=== PATIENT | female | born 1975 | race Caucasian/White ===

== ENCOUNTER 2016-12-11 21:35 | Observation (INO) | payer OTHER ==
--- NOTE | 2016-12-11 22:01 | ERPHSYRPT ---
- History of Present Illness Time Seen by Provider: 12/11/16 21:50 Historian: patient Exam Limitations: no limitations Physician History: 40 y/o female with history of [place], DM and left AKA comes to the ER with complaints of substernal chest tightness that started this evening. Pt describes it as a pressure sensation, 1/10, constant, with radiation up the esophagus and not relieved by rey seltzer. Pt denies any dizziness, palpitations, shortness of breath, abdominal pain, nausea or vomiting. Pt has been compliant on plavix Timing/Duration: today Activities at Onset: none Quality: pressure Location: substernal Chest Pain Radiation: no radiation Severity of Pain-Max: mild Severity of Pain-Current: mild Modifying Factors: Improves With: nothing Associated Symptoms: denies symptoms Prior Chest Pain/Cardiac Workup: angina Nitro Today/Relief: no nitro taken today Aspirin Treatment Today: no aspirin today Allergies/Adverse Reactions: Iodinated Contrast- Oral and IV Dye [IV Dye, Iodine Containing Contrast ] Allergy (Severe, Verified 12/07/14 23:47) HIVES Home Medications: Clopidogrel Bisulfate 75 mg [PLAVIX 75 MG Tablet] 75 mg PO DAILY 01/15/14 [History] Furosemide [Lasix] 40 mg PO DAILY 01/15/14 [History] Gemfibrozil 600 mg [Lopid 600 mg] 600 mg PO HS 01/15/14 [History] Hydrocodone/Acetaminophen [Vicodin Es 7.5-300 mg Tablet] 1 tab PO Q4-6HPRN PRN 01/15/14 [History] Metoprolol Succinate 50 mg [Toprol Xl 50 MG] 100 mg PO DAILY 01/15/14 [ History] Allopurinol 100 mg [Zyloprim 100 mg] 100 mg PO DAILY 02/04/14 [History] Linagliptin [Tradjenta] 5 mg PO HS 02/04/14 [History] Escitalopram Oxalate 10 mg [Lexapro 10 MG] 10 mg PO DAILY 12/11/16 [History] Loratadine 10 mg [Claritin 10 mg] 10 mg PO DAILY 12/11/16 [History] Hx Tetanus, Diphtheria Vaccination/Date Given: Yes Hx Influenza Vaccination/Date Given: No Hx Pneumococcal Vaccination/Date Given: No - Review of Systems Constitutional: No Fever, No Chills Eyes: No Symptoms Ears, Nose, & Throat: No Symptoms Respiratory: No Cough, No Dyspnea Cardiac: Chest Pain, No Edema, No Syncope Abdominal/Gastrointestinal: No Abdominal Pain, No Nausea, No Vomiting, No Diarrhea Genitourinary Symptoms: No Dysuria Musculoskeletal: No Back Pain, No Neck Pain Skin: No Rash Neurological: No Dizziness, No Focal Weakness, No Sensory Changes Psychological: No Symptoms Endocrine: No Symptoms All Other Systems: Reviewed and Negative - Past Medical History Pertinent Past Medical History: Yes Neurological History: No Pertinent History ENT History: Cataracts Cardiac History: High Cholesterol, Hypertension, Myocardial Infarction ([place]) Respiratory History: Asthma, COPD Endocrine Medical History: Diabetes Type II Musculoskeletal History: Arthritis, Degenerative Disk Disease, Fractures GI Medical History: Gallbladder Disease History: Other (as noted in history of present illness) Psycho-Social History: Anxiety, Bipolar, Depression, Panic Disorder Female Reproductive Disorders: Other Other Medical History: HEART CATH - Past Surgical History Past Surgical History: Yes Neuro Surgical History: No Pertinent History Cardiac: Cardiac Catheterization, Cardiac Stent Respiratory: No Pertinent History Gastrointestinal: No Pertinent History Genitourinary: No Pertinent History Musculoskeletal: Amputation, Orthopedic Surgery Female Surgical History: Hysterectomy Other Surgical History: screw in toe- boxer break, removal of Bible cyst, cataracts, amputation left below the knee - Social History Smoking Status: Current every day smoker How long have you smoked: 20 Exposure to second hand smoke: No Drug Use: none Patient Lives Alone: No - Nursing Vital Signs Nursing Vital Signs: Initial Vital Signs Temperature 98.4 F 12/11/16 21:45 Pulse Rate 76 12/11/16 21:45 Respiratory Rate 18 12/11/16 21:45 Blood Pressure 155/91 12/11/16 21:45 O2 Sat by Pulse Oximetry 94 L 12/11/16 21:45 Pain Scale Pain Intensity 0 - Physical Exam General Appearance: no apparent distress, alert, obese Eye Exam: PERRL/EOMI, eyes nml inspection Ears, Nose, Throat Exam: normal ENT inspection, moist mucous membranes Neck Exam: normal inspection, non-tender, supple, full range of motion Respiratory Exam: normal breath sounds, lungs clear, No respiratory distress Cardiovascular Exam: regular rate/rhythm, normal heart sounds Gastrointestinal/Abdomen Exam: soft, No tenderness, No mass Back Exam: normal inspection, No CVA tenderness, No vertebral tenderness Extremity Exam: normal inspection, normal range of motion, amputations Neurologic Exam: alert, oriented x 3, cooperative, normal mood/affect, sensation nml, No motor deficits Skin Exam: normal color, warm, dry - Course Nursing assessment & vital signs reviewed: Yes EKG Interpreted by Me: RATE, NORMAL INTERVALS, NORMAL QRS, Other (T wave flattening in leads V2 and V3) Ordered Tests: Active Orders 24 hr Category Date Time Status Floor Grinder STAT Care 12/11/16 21:57 Active EKG-ER Only STAT Care 12/11/16 21:57 Active IV Insertion STAT Care 12/11/16 21:57 Active CHEST 1 VIEW (PORTABLE) Stat Exams 12/11/16 21:57 Taken CBC W DIFF Stat Lab 12/11/16 22:21 Completed CK-Creatinine Phosphokinase Stat Lab 12/11/16 22:21 Completed CMP Stat Lab 12/11/16 22:21 Completed D-DIMER QUANTITATION Stat Lab 12/11/16 22:21 Completed HCG QUALITATIVE,SERUM Stat Lab 12/11/16 22:21 Completed NT PRO BNP Stat Lab 12/11/16 22:21 Completed PROTIME WITH INR Stat Lab 12/11/16 22:21 Completed PTT Stat Lab 12/11/16 22:21 Completed TROPONIN Q3H Lab 12/11/16 22:21 Completed TROPONIN Q3H Lab 12/12/16 01:00 Ordered TROPONIN Q3H Lab 12/12/16 04:00 Ordered TROPONIN Q3H Lab 12/12/16 07:00 Ordered TROPONIN Q3H Lab 12/12/16 10:00 Ordered Medication Summary Discontinued Medications Generic Name Dose Route Start Last Admin Trade Name Freq PRN Reason Stop Dose Admin Enoxaparin Sodium 150 mg 12/11/16 23:42 Enoxaparin Sodium SQ 12/11/16 23:43 STAT ONE Pantoprazole Sodium 40 mg 12/11/16 22:34 12/11/16 22:39 Protonix 40 Mg Iv IV 12/11/16 22:35 40 mg STAT ONE Administration Pantoprazole Sodium Confirm 12/11/16 22:38 Protonix 40 Mg Iv Administered 12/11/16 22:39 Dose 40 mg IV .STK-MED ONE Lab/Rad Data: Laboratory Result Diagrams 12/11/16 22:21 12/11/16 22:21 Laboratory Results 12/11/16 12/11/16 12/11/16 Range/Units 22:21 22:21 22:21 WBC (4.0-10.5) K/mm3 RBC (4.1-5.4) M/mm3 Hgb (12.0-16.0) gm/dl Hct (35-47) % MCV (78-100) fl MCH (26-32) pg MCHC (32-36) g/dl RDW (11.5-14.0) % Plt Count (150-450) K/mm3 MPV (6-9.5) fl Gran % (36.0-66.0) % Lymphocytes % (24.0-44.0) % Monocytes % (0.0-12.0) % Eosinophils % (0.00-5.0) % Basophils % (0.0-0.4) % Basophils # (0-0.4) INR 1.05 (0.8-3.0) APTT 33.7 (25.3-37.0) SECONDS D-Dimer 1251 H* (0-500) ng/mL Sodium (136-145) mEq/L Potassium (3.5-5.1) mEq/L Chloride (98-107) mEq/L Carbon Dioxide (21-32) mEq/L Anion Gap (5-15) MEQ/L BUN (9-20) mg/dL Creatinine (0.55-1.30) mg/dl Estimated GFR ML/MIN Glucose (70-110) MG/DL Calcium (8.5-10.1) mg/dL Total Bilirubin (0.2-1.0) mg/dL AST (15-37) U/L ALT (12-78) U/L Alkaline Phosphatase (46-116) U/L Creatine Kinase (26-192) U/L Troponin I < 0.017 (0.000-0.056) ng/ml NT-Pro-B Natriuret Pep (0-125) pg/ml Serum Total Protein (6.4-8.2) gm/dL Albumin (3.4-5.0) g/dL Serum , Qual NEGATIVE (Negative) 12/11/16 12/11/16 Range/Units 22:21 22:21 WBC 14.3 H (4.0-10.5) K/mm3 RBC 5.16 (4.1-5.4) M/mm3 Hgb 15.9 (12.0-16.0) gm/dl Hct 48.2 H (35-47) % MCV 93.4 (78-100) fl MCH 30.8 (26-32) pg MCHC 33.0 (32-36) g/dl RDW 14.6 H (11.5-14.0) % Plt Count 271 (150-450) K/mm3 MPV 10.9 H (6-9.5) fl Gran % 70.1 H (36.0-66.0) % Lymphocytes % 21.8 L (24.0-44.0) % Monocytes % 6.0 (0.0-12.0) % Eosinophils % 1.8 (0.00-5.0) % Basophils % 0.3 (0.0-0.4) % Basophils # 0.05 (0-0.4) INR (0.8-3.0) APTT (25.3-37.0) SECONDS D-Dimer (0-500) ng/mL Sodium 138 (136-145) mEq/L Potassium 4.2 (3.5-5.1) mEq/L Chloride 100 (98-107) mEq/L Carbon Dioxide 28.7 (21-32) mEq/L Anion Gap 13.5 (5-15) MEQ/L BUN 40 H (9-20) mg/dL Creatinine 1.55 H (0.55-1.30) mg/dl Estimated GFR 40 ML/MIN Glucose 87 (70-110) MG/DL Calcium 9.5 (8.5-10.1) mg/dL Total Bilirubin 0.40 (0.2-1.0) mg/dL AST 13 L (15-37) U/L ALT 17 (12-78) U/L Alkaline Phosphatase 99 (46-116) U/L Creatine Kinase 57 (26-192) U/L Troponin I (0.000-0.056) ng/ml NT-Pro-B Natriuret Pep 312 H (0-125) pg/ml Serum Total Protein 8.5 H (6.4-8.2) gm/dL Albumin 3.6 (3.4-5.0) g/dL Serum , Qual (Negative) - Progress Progress: improved Progress Note: 12/12/16 00:01 Pt has an elevated d-dimer of over 1000 and will require a V/Q scan in the morning since she has an allergy to IV contrast. The EKG shows T wave flattening in leads V2 and V3. The first troponin is negative. The CXR does not show any acute findings. Pt will receive a dose of lovenox 150mcg SQ X 1 dose. Pt has been admitted to Dr Hallman for V/Q scan and will need to have troponin levels checked every 6 hrs. - Departure Time of Disposition: 00:04 Departure Disposition: In-patient Admission Clinical Impression: Chest pain Qualifiers: Chest pain type: unspecified Qualified Code(s): R07.9 - Chest pain, unspecified Condition: Stable Critical Care Time: Yes Critical Care Time(excluding separately billable procedures): 30-74 minutes Referrals: RABIA PATE [Primary Care Provider] -
[2016-12-11 22:28] LABS: BASOPHIL % 0.3 % (0.0-0.4); Eosinophil % 1.8 % (0.00-5.0); Granulocytes % 70.1 % (36.0-66.0); Lymphocytes % 21.8 % (24.0-44.0); Mean Cell Volume 93.4 fl (78-100); Mean Corpuscular Hemoglobin 30.8 pg (26-32); Mean Platelet Volume 10.9 fl (6-9.5); Platelet Count 271 K/mm3 (150-450); Red Blood Count 5.16 M/mm3 (4.1-5.4); Red Cell Distribution Width 14.6 % (11.5-14.0); White Blood Count 14.3 K/mm3 (4.0-10.5)
[2016-12-11] MEDS ORDERED: PROTONIX 40 MG IV IV ONE ×2 (22:34→22:38)
[2016-12-11 22:59] LABS: INR 1.05 (0.8-3.0); PROTIME 11.7 SECONDS (9.95-12.35)
[2016-12-11 23:02] LABS: PTT 33.7 SECONDS (25.3-37.0)
[2016-12-11 23:15] LABS: ALBUMIN 3.6 g/dL (3.4-5.0); ANION GAP 13.5 MEQ/L (5-15); BILIRUBIN,TOTAL 0.4 mg/dL (0.2-1.0); Carbon Dioxide 28.7 mEq/L (21-32); Potassium 4.2 mEq/L (3.5-5.1); Total Protein 8.5 gm/dL (6.4-8.2)
[2016-12-11] MEDS ORDERED: ENOXAPARIN SODIUM SQ ONE (23:42)
[2016-12-12] MEDS ORDERED: TYLENOL 325 MG PO PRN (00:05)
[2016-12-12] MEDS ORDERED: MAALOX ES 30 ML UNIT DOSE PO PRN (00:05)
[2016-12-12] MEDS ORDERED: MILK OF MAGNESIA 30 ML PO PRN (00:05)
[2016-12-12] MEDS ORDERED: Senokot-S Tablet PO PRN (00:05)
[2016-12-12] MEDS ORDERED: BENADRYL 25 MG CAPSULE PO ONE (00:15)
[2016-12-12] MEDS ORDERED: PHARMACY DOSING REQUEST MC ONE (07:12)
[2016-12-12 07:17] LABS: BASOPHIL % 0.4 % (0.0-0.4); Eosinophil % 1.7 % (0.00-5.0); Granulocytes % 68.5 % (36.0-66.0); Lymphocytes % 23.5 % (24.0-44.0); Mean Cell Volume 93.9 fl (78-100); Mean Corpuscular Hemoglobin 31.3 pg (26-32); Mean Platelet Volume 10.9 fl (6-9.5); Monocytes % 5.9 % (0.0-12.0); Platelet Count 283 K/mm3 (150-450); Red Blood Count 5.12 M/mm3 (4.1-5.4); Red Cell Distribution Width 14.7 % (11.5-14.0)
[2016-12-12] MEDS ORDERED: Zosyn 3.375GM/100 Ml D5W 3.375 GM/100 ML IVPB IV SCH (07:30)
[2016-12-12 07:41] LABS: ALBUMIN 3.6 g/dL (3.4-5.0); ANION GAP 14.6 MEQ/L (5-15); BILIRUBIN,TOTAL 0.4 mg/dL (0.2-1.0); Potassium 3.9 mEq/L (3.5-5.1); Total Protein 8.5 gm/dL (6.4-8.2)
[2016-12-12] MEDS ORDERED: Norco 10/325 MG Tablet PO PRN (08:02)
[2016-12-12] MEDS ORDERED: Xopenex 1.25 MG/0.5 ML UD NEBULE IH PRN (08:02)
[2016-12-12] MEDS ORDERED: NON-FORMULARY ITEM (Insulin Lispro 100 UNIT) SQ SCH (08:15)
[2016-12-12] MEDS ORDERED: PATIENT OWN MEDICATION SQ PRN (08:16)
[2016-12-12] MEDS ORDERED: NON-FORMULARY ITEM (Linagliptin [Tradjenta] 5 MG) PO SCH (10:00)
[2016-12-12] MEDS ORDERED: VALSARTAN PO SCH (10:00)
[2016-12-12] MEDS ORDERED: ZYLOPRIM 100 MG PO SCH (10:00)
[2016-12-12] MEDS ORDERED: Januvia 50 MG PO SCH (10:00)
[2016-12-12] MEDS ORDERED: PLAVIX 75 MG Tablet PO SCH (10:00)
[2016-12-12] MEDS ORDERED: CLARITIN 10 MG PO SCH (10:00)
[2016-12-12] MEDS ORDERED: DIOVAN 80 MG PO SCH (10:00)
[2016-12-12] MEDS ORDERED: Toprol Xl 100 MG PO SCH (10:00)
[2016-12-12] MEDS ORDERED: NON-FORMULARY ITEM (Esomeprazole Magnesium [Nexium] 20 MG) PO SCH (10:00)
[2016-12-12] MEDS ORDERED: Protonix 40MG Tablet PO SCH (10:00)
[2016-12-12] MEDS ORDERED: DULCOLAX 5 MG PO SCH (10:00)
[2016-12-12] MEDS ORDERED: FLUCELVAX QUAD 2017-2018 SYR IM ONE (10:00)
[2016-12-12] MEDS ORDERED: Lasix 40 MG PO SCH (10:00)
[2016-12-12] MEDS ORDERED: Toprol Xl 50 MG PO SCH (10:00)
[2016-12-12] MEDS ORDERED: HYDROCHLOROTHIAZIDE PO SCH (10:00)
[2016-12-12] MEDS ORDERED: LOPID 600 MG PO SCH (10:00)
[2016-12-12] MEDS ORDERED: hydroDIURIL 25 MG PO SCH (10:00)
[2016-12-12] MEDS ORDERED: Lexapro 10 MG PO SCH (10:00)
--- NOTE | 2016-12-12 11:02 | PCM.DCORD ---
- Discharge Discharge Date: 12/12/16 Condition: Stable Prescriptions: New Amox Tr/Potass Clav. 875 mg [Augmentin 875-125 Tablet] 875 mg PO BID 10 Days #20 tablet Continue Furosemide [Lasix] 40 mg PO DAILY Clopidogrel Bisulfate 75 mg [PLAVIX 75 MG Tablet] 75 mg PO DAILY Metoprolol Succinate 50 mg [Toprol Xl 50 MG] 100 mg PO DAILY Allopurinol 100 mg [Zyloprim 100 mg] 100 mg PO DAILY Linagliptin [Tradjenta] 5 mg PO DAILY Loratadine 10 mg [Claritin 10 mg] 10 mg PO DAILY Escitalopram Oxalate 10 mg [Lexapro 10 MG] 10 mg PO DAILY Esomeprazole Magnesium [Nexium] 20 mg PO DAILY Bisacodyl 5 mg [Dulcolax 5 mg] 10 mg PO DAILY Insulin Lispro [Humalog] 100 unit SQ UD Hydrocodone Bit/Acetaminophen [[place] 10-325 Tablet] 1 each PO Q4H PRN PRN PRN Reason: Pain Valsartan/Hydrochlorothiazide [Diovan Hct 160-25 mg Tablet] 1 each PO DAILY Gemfibrozil 600 mg [Lopid 600 mg] 600 mg PO DAILY Levalbuterol HCl 1.25 MG/0.5M* [Xopenex 1.25 MG/0.5 ML UD NEBULE] 1.25 mg IH DAILY PRN PRN PRN Reason: Shortness Of Breath/Wheezing Follow up with: RABIA PATE [NON-STAFF PHY W/O PRIVILEGES] -
--- NOTE | 2016-12-12 11:17 | XRAY ---
Exam: AP upright portable chest film from 2235 hours on 12/11/2016. Comparison: AP portable chest film from 12/08/2014. Indication: Chest pain. Findings: The patient is noted to be large. The lungs appear hypoinflated. The transverse heart size appears unremarkable and is midline. The ihren appear unremarkable. No gross lung infiltrates, vascular congestion, pneumothorax, or pleural fluid is seen. No acute osseous process is seen. Impression: 1. Low lung volumes representing no significant change from 12/08/2014. 2. No gross focal lung infiltrates or other acute cardiopulmonary disease is seen. This appears stable as compared to 12/08/2014.
[2016-12-12 11:27] VITALS: BP 151/72; PULSE 73; O2SAT 94
--- NOTE | 2016-12-12 14:26 | SSS ---
DISCHARGE DIAGNOSIS: ATYPICAL CHEST PAIN. CHIEF COMPLAINT: Epigastric pain radiating into the chest. HISTORY OF PRESENT ILLNESS: The patient is a 40 year-old white female with history of previous myocardial infarction. She also has above knee amputation on the left side from diabetes mellitus. The patient reports that this is more of a discomfort in the upper epigastric region radiating into the chest. She reports that she knows that she had abnormal gallbladder. She previously had been scheduled for surgery but backed out of it. The patient was admitted to the hospital to rule out myocardial infarction. HOME MEDICATIONS: Currently includes Plavix 75 mg daily, Lasix 40 mg a day, Lopid 600 mg at night, Vicodin ES PRN pain, metoprolol 100 mg daily, Zyloprim 100 mg a day, Tradjenta 5 mg at night, Lexapro 10 mg a day and Claritin 10 mg a day. ALLERGIES: IV DYE. PHYSICAL EXAMINATION: Revealed a morbidly obese 40 year-old white female currently in no distress. She is sitting up at a table presently. Her vital signs at the present time showed a temperature 98.0F, pulse 77, respiratory rate 14, blood pressure 138/67. O2 saturation 92% on room air. HEENT: Normocephalic, atraumatic. Pupils equal round reactive to light. Oropharynx is pink and moist. NECK: Supple without lymphadenopathy, thyromegaly or JVD. CHEST: Clear to auscultation with good air movement bilaterally. HEART: Regular rate and rhythm without murmurs, rubs or gallops. ABDOMEN: Soft. No palpable masses are felt. EXTREMITIES: Revealed left above knee amputation. No clubbing, cyanosis or edema is present. NEUROLOGIC: The patient is alert and oriented x3 with no focal deficits obvious. LAB DATA AND TESTS: White blood cell count 14,300, hemoglobin 15.9, PLT count 271,000. Troponins less than 0.017. HCG negative. Her D-dimer was positive at 1,251. Her glucose 87, BUN 40, creatinine 1.455. Liver enzymes were normal. ProBNP was slightly elevated at 312. The patient's lipid panel showed HDL 30, LDL 91. Several troponins have been negative. EKG showed low voltage across the anterior leads but no acute ST-T wave changes were noted and she is in sinus rhythm. ASSESSMENT: A patient with upper epigastric discomfort which might be gastritis or gallbladder in nature. The patient had already eaten this morning so we could not get a gallbladder ultrasound performed. She was scheduled for VQ scan due to elevated D-dimer as we could not do the CT scan with pulmonary embolism protocol due to her allergy to dye and the fact that her creatinine is elevated. The patient is morbidly obese and too large to fit in the VQ scanner therefore we will not be able to perform this procedure. Afterwards the patient was quite irate and wished to go home and was even willing to sign out AMA should we no release her. I discussed with her the possibility of the presence of pulmonary embolism could not be ruled out at the present time. The patient reminds us that she is on Plavix religiously and due to her lack of symptoms otherwise and good oxygen saturations we doubt the patient has pulmonary embolism. The patient does have known gallbladder disease and we will recheck her gallbladder ultrasound on Thursday with likely surgical consultation thereafter. The patient was released home on her usual home medications with the addition of Augmentin 875 mg to help cover the possibility of cholecystitis. The patient will follow with Shilpa Paul in the office as she sees her for her primary care provider.
== END 2016-12-12 12:18 | disposition home or self-care (01) ==
LOC: ED 21:35 → MED SURG 12-12 00:48
PROVIDERS: ADMIT Family Medicine; ATTEND Family Medicine
DX: R07.89 Other chest pain (principal); I25.2 Old myocardial infarction; Z79.899 Other long term (current) drug therapy; E66.01 Morbid (severe) obesity due to excess calories
CPT/HCPCS: 36000; 36415; 71010; 80053; 80061; 82550; 82962; 83721; 83880; 84484; 84703; 85025; 85379; 85610; 85730; 93005; 93041; 93268; 94760; 96372; 96374; 99285; G0008; G0378; J1650; J2543; 90682; A9270-GY

== ENCOUNTER 2016-12-29 22:44 | Emergency (ER) | payer OTHER ==
--- NOTE | 2016-12-30 00:01 | ERPHSYRPT ---
- History of Present Illness Time Seen by Provider: 12/29/16 23:49 Source: patient Exam Limitations: no limitations Patient Subjective Stated Complaint: Pt C/O blistering left pinky finger. Reports she does not know what happened, she found the blister on her left pinky finger after dinner. Reports discomfort /10, feels tight. Triage Nursing Assessment: Pt alert, oriented, answers all questions appropriately. Skin pink, warm, dry. Resps non-labored. Pt to tx room per wheelchair. Pt is amputee left BKA. Redness noted to left pinky finger with fluid-filled blister. Redness noted around edges of blistering area. Physician History: This is a 41-year-old female with history of diabetes asthma COPD hyperlipidemia high blood pressure myocardial infarction Patient arrives with complaint of blistering to the distal end of her left fifth finger symptoms since just prior to arrival. Patient states that she ate dinner and noticed blistering noted to the distal end of her left fifth finger. She denies any known injury but states she has a history of peripheral neuropathy. Past medical history includes cataracts, diabetes, asthma, COPD, hyperlipidemia , high blood pressure, myocardial infarction, all bladder disease, arthritis, degenerative disc disease, anxiety, bipolar depression, peripheral neuropathy past surgical history includes cardiac catheter, cardiac stents Occurred: just prior to arrival Method of Injury: unknown Quality: constant Severity of Pain-Max: mild Severity of Pain-Current: mild Extremities Pain Location: 5th finger: left Modifying Factors: Improves With: nothing Associated Symptoms: none Allergies/Adverse Reactions: Iodinated Contrast- Oral and IV Dye [IV Dye, Iodine Containing Contrast ] Allergy (Severe, Verified 12/07/14 23:47) HIVES Home Medications: Clopidogrel Bisulfate 75 mg [PLAVIX 75 MG Tablet] 75 mg PO DAILY 01/15/14 [History] Furosemide [Lasix] 40 mg PO DAILY 01/15/14 [History] Metoprolol Succinate 50 mg [Toprol Xl 50 MG] 100 mg PO DAILY 01/15/14 [ History] Allopurinol 100 mg [Zyloprim 100 mg] 100 mg PO DAILY 02/04/14 [History] Linagliptin [Tradjenta] 5 mg PO DAILY 02/04/14 [History] Escitalopram Oxalate 10 mg [Lexapro 10 MG] 10 mg PO DAILY 12/11/16 [History] Loratadine 10 mg [Claritin 10 mg] 10 mg PO DAILY 12/11/16 [History] Bisacodyl 5 mg [Dulcolax 5 mg] 10 mg PO DAILY 12/12/16 [History] Esomeprazole Magnesium [Nexium] 20 mg PO DAILY 12/12/16 [History] Gemfibrozil 600 mg [Lopid 600 mg] 600 mg PO DAILY 12/12/16 [History] Hydrocodone Bit/Acetaminophen [[place] 10-325 Tablet] 1 each PO Q4H PRN PRN [History] Insulin Lispro [Humalog] 100 unit SQ UD 12/12/16 [History] Levalbuterol HCl 1.25 MG/0.5M* [Xopenex 1.25 MG/0.5 ML UD NEBULE] 1.25 mg IH DAILY PRN PRN 12/12/16 [History] Valsartan/Hydrochlorothiazide [Diovan Hct 160-25 mg Tablet] 1 each PO DAILY [History] Hx Tetanus, Diphtheria Vaccination/Date Given: Yes Hx Influenza Vaccination/Date Given: No Hx Pneumococcal Vaccination/Date Given: No Immunizations Up to Date: Yes - Review of Systems Constitutional: No Fever, No Chills Eyes: No Symptoms Ears, Nose, & Throat: No Symptoms Respiratory: No Cough, No Dyspnea Cardiac: No Chest Pain, No Edema, No Syncope Abdominal/Gastrointestinal: No Abdominal Pain, No Nausea, No Vomiting, No Diarrhea Genitourinary Symptoms: No Dysuria Musculoskeletal: Other (blisters and pain distal left fifth finger) Skin: Other (blisters distal left fifth finger) Neurological: No Dizziness, No Focal Weakness, No Sensory Changes Psychological: No Symptoms Endocrine: No Symptoms All Other Systems: Reviewed and Negative - Past Medical History Pertinent Past Medical History: Yes Neurological History: No Pertinent History ENT History: Cataracts Cardiac History: High Cholesterol, Hypertension, Myocardial Infarction ([place]) Respiratory History: Asthma, COPD Endocrine Medical History: Diabetes Type II Musculoskeletal History: Arthritis, Degenerative Disk Disease, Fractures GI Medical History: Gallbladder Disease History: Other Psycho-Social History: Anxiety, Bipolar, Depression, Panic Disorder Female Reproductive Disorders: Other Other Medical History: HEART CATH, peripheral neuropathy - Past Surgical History Past Surgical History: Yes Neuro Surgical History: No Pertinent History Cardiac: Cardiac Catheterization, Cardiac Stent Respiratory: No Pertinent History Gastrointestinal: No Pertinent History Genitourinary: No Pertinent History Musculoskeletal: Amputation, Orthopedic Surgery Female Surgical History: Hysterectomy Other Surgical History: screw in toe- boxer break, removal of Bible cyst, cataracts, amputation left below the knee - Social History Smoking Status: Current every day smoker How long have you smoked: 20 Exposure to second hand smoke: No Drug Use: none Patient Lives Alone: No - Nursing Vital Signs Nursing Vital Signs: Initial Vital Signs Temperature 98.8 F 12/29/16 23:01 Pulse Rate 91 H 12/29/16 23:01 Respiratory Rate 20 12/29/16 23:01 Blood Pressure 161/110 12/29/16 23:01 O2 Sat by Pulse Oximetry 94 L 12/29/16 23:01 Pain Scale Pain Intensity 1 - Physical Exam General Appearance: alert, obese Eyes, Ears, Nose, Throat Exam: moist mucous membranes Neck Exam: non-tender, supple Cardiovascular/Respiratory Exam: chest non-tender, normal breath sounds, regular rate/rhythm, no respiratory distress Abdominal Exam: non-tender, No guarding Back Exam: normal inspection, No vertebral tenderness Shoulder Exam: normal inspection, non-tender, no evidence of injury, normal ROM Elbow/Forearm Exam: normal inspection, non-tender, no evidence of injury, normal ROM Wrist Exam: normal inspection, non-tender, no evidence of injury, normal ROM Hand Exam: normal ROM, No normal inspection (patient's distal left fifth finger with blister formation) Neuro/Tendon Exam: normal sensation, normal motor functions Mental Status Exam: alert, oriented x 3, cooperative Skin Exam: normal color, warm, dry SpO2 Interpretation: normal (94%) SpO2: 94 Oxygen Delivery: Room Air - Course Nursing assessment & vital signs reviewed: Yes Ordered Tests: Active Orders 24 hr Category Date Time Status Wound Care STAT Care 12/30/16 00:32 Active HAND (MINIMUM 3 VIEWS) Stat Exams 12/29/16 23:55 Taken - Progress Progress: improved Progress Note: 12/30/16 00:34 This is a 41-year-old female arrives with complaint of what appears to be blisters to their left fifth distal finger symptoms just noticed today after having dinner. Patient states she has a history of peripheral neuropathy and really doesn't know if she had any injury or not. On physical examination patient with a vesicle which encompasses the distal left small finger pad there appears to be good refill to the area dorsal left distal fifth finger also full range of motion to the left fifth finger patient X -ray of the left hand negative fractures. Patient states they are already on amoxicillin Will place patient on clindamycin . Patient really appears to have a burn to the left fifth finger however the patient with peripheral neuropathy does not know whether she has injured herself. 12/30/16 00:41 Patient's tetanus is up-to-date last tetanus 2 years ago - Departure Time of Disposition: 00:37 Departure Disposition: Home Clinical Impression: vesicle left distal fifth finger Condition: Fair Critical Care Time: No Referrals: RABIA PATE [Primary Care Provider] - Additional Instructions: Return home. Clean area and apply bacitracin several times daily. Clindamycin as prescribed. Continue your amoxicillin as prescribed by your family doctor. Follow-up with your family doctor call tomorrow for an appointment. Return for acute distress or for severe symptoms. Prescriptions: Clindamycin HCl 300 mg PO TID #30 capsule
[2016-12-30] MEDS ORDERED: BACIGUENT PACKET TP ONE (00:32)
[2016-12-30] MEDS ORDERED: CLEOCIN 150 MG CAPSULE PO ONE (00:32)
[2016-12-30] MEDS ORDERED: BACIGUENT PACKET ONE (01:05)
[2016-12-30] MEDS ORDERED: CLEOCIN 150 MG CAPSULE ONE (01:05)
[2016-12-30 01:32] VITALS: BP 128/80; PULSE 81; O2SAT 99
--- NOTE | 2016-12-30 08:49 | XRAY ---
Indication: Fifth digit pain. No known injury. Comparison: None 3 views of the left hand obtained. No bony, articular, or soft tissue abnormalities.
== END 2016-12-30 01:31 | disposition home or self-care (01) ==
LOC: ED 22:44
DX: R23.8 Other skin changes (principal); M79.645 Pain in left finger(s)
CPT/HCPCS: 73130; 99283; A9270-GY

== ENCOUNTER 2017-01-07 01:33 | Emergency (ER) | payer OTHER ==
[2017-01-07 02:23] LABS: BASOPHIL % 0.4 % (0.0-0.4); Eosinophil % 1.7 % (0.00-5.0); Granulocytes % 71.9 % (36.0-66.0); Lymphocytes % 19.9 % (24.0-44.0); Mean Cell Volume 94.4 fl (78-100); Mean Corpuscular Hemoglobin 30.9 pg (26-32); Mean Platelet Volume 10.9 fl (6-9.5); Monocytes % 6.1 % (0.0-12.0); Platelet Count 232 K/mm3 (150-450); Red Blood Count 4.86 M/mm3 (4.1-5.4); Red Cell Distribution Width 15.1 % (11.5-14.0); White Blood Count 14.3 K/mm3 (4.0-10.5)
--- NOTE | 2017-01-07 02:31 | ERPHSYRPT ---
- History of Present Illness Time Seen by Provider: 01/07/17 01:48 Source: patient Exam Limitations: no limitations Patient Subjective Stated Complaint: pt states she injured her finger on thursday and was seen in the wound care clinic on thursday and had debridement done. states the wound is looking worse tonight. Triage Nursing Assessment: pt alert and oriented, answers questions approp. respirations nonlabored with lungs cta. pt rt bka, transfer from wheelchair to stretcher without assist. skin pink warm and dry. open area to lt 5th digit with dark area at tip of finger. rt radial pulse and cap refill wnl. Physician History: ABOUT 6 DAYS AGO PT NOTICED A BLISTER ON HER LEFT SMALL FINGER(THINKS SHE POSSIBLY BURNT IT ON A HOT NIGERIAN PLATE THE DAY BEFORE BUT COULD NOT FEEL IT DUE TO HER NEUROPATHY). PT WENT TO [facility] AND WAS RX'ED CLINDAMYCIN. 2 DAYS AGO PT WENT TO WOUND CARE WHERE THE WOUND WAS DEBRIDED AND DRESSED. TONIGHT PT REMOVED THE BANDAGE AND THE TIP OF LEFT SMALL FINGER HAD A DARK CRUSTY AREA ON THE TIP. PT DENIES FEVER, NAUSEA, VOMITING, CHILLS, CHEST PAIN. PT STATES NORMALLY HER WBC COUNT IS ELEVATED ON HER CBC'S. Allergies/Adverse Reactions: Iodinated Contrast- Oral and IV Dye [IV Dye, Iodine Containing Contrast ] Allergy (Severe, Verified 01/07/17 01:59) HIVES theophylline [From Navneet-Dur] Adverse Reaction (Verified 01/07/17 01:59) Vomiting vancomycin Adverse Reaction (Verified 01/07/17 01:59) Home Medications: Clopidogrel Bisulfate 75 mg [PLAVIX 75 MG Tablet] 75 mg PO DAILY 01/15/14 [History] Furosemide [Lasix] 40 mg PO DAILY 01/15/14 [History] Metoprolol Succinate 50 mg [Toprol Xl 50 MG] 100 mg PO DAILY 01/15/14 [ History] Allopurinol 100 mg [Zyloprim 100 mg] 100 mg PO DAILY 02/04/14 [History] Linagliptin [Tradjenta] 5 mg PO DAILY 02/04/14 [History] Escitalopram Oxalate 10 mg [Lexapro 10 MG] 10 mg PO DAILY 12/11/16 [History] Loratadine 10 mg [Claritin 10 mg] 10 mg PO DAILY 12/11/16 [History] Bisacodyl 5 mg [Dulcolax 5 mg] 10 mg PO DAILY 12/12/16 [History] Esomeprazole Magnesium [Nexium] 20 mg PO DAILY 12/12/16 [History] Gemfibrozil 600 mg [Lopid 600 mg] 600 mg PO DAILY 12/12/16 [History] Insulin Lispro [Humalog] 100 unit SQ UD 12/12/16 [History] Levalbuterol HCl 1.25 MG/0.5M* [Xopenex 1.25 MG/0.5 ML UD NEBULE] 1.25 mg IH DAILY PRN PRN 12/12/16 [History] Valsartan/Hydrochlorothiazide [Diovan Hct 160-25 mg Tablet] 1 each PO DAILY [History] Clindamycin HCl 300 mg PO QID 01/07/17 [History] Hx Tetanus, Diphtheria Vaccination/Date Given: Yes Hx Influenza Vaccination/Date Given: Yes (2016) Hx Pneumococcal Vaccination/Date Given: Yes (2016) Immunizations Up to Date: Yes - Review of Systems Constitutional: No Fever, No Chills Abdominal/Gastrointestinal: No Nausea, No Vomiting Skin: Other (HEALING BURN TO THE DISTAL PHALYNX OF THE LEFT SMALL FINGER) Endocrine: No Excessive Sweating All Other Systems: Reviewed and Negative - Past Medical History Pertinent Past Medical History: Yes Neurological History: Peripheral Neuropathy ENT History: Cataracts Cardiac History: Myocardial Infarction ([place]), Other Respiratory History: Asthma, COPD Endocrine Medical History: Diabetes Type II, Other Musculoskeletal History: Arthritis, Degenerative Disk Disease, Fractures GI Medical History: Gallbladder Disease History: Other Psycho-Social History: Anxiety, Bipolar, Depression, Panic Disorder Female Reproductive Disorders: Other Other Medical History: STENT PLACEMENT; PT IS INSULIN DEPENDENT DIABETIC - Past Surgical History Past Surgical History: Yes Neuro Surgical History: No Pertinent History Cardiac: Cardiac Catheterization, Cardiac Stent Respiratory: No Pertinent History Gastrointestinal: No Pertinent History Genitourinary: No Pertinent History Musculoskeletal: Amputation, Orthopedic Surgery Female Surgical History: Hysterectomy Other Surgical History: screw in toe- boxer break, removal of Bible cyst, cataracts, amputation left below the knee - Social History Smoking Status: Current every day smoker How long have you smoked: 20 Exposure to second hand smoke: Yes Drug Use: none Patient Lives Alone: No - Female History Hx Last Menstrual Period: 1 month ago- irreg Hx Now: No - Nursing Vital Signs Nursing Vital Signs: Initial Vital Signs Temperature 97.9 F 01/07/17 01:43 Pulse Rate 84 01/07/17 01:43 Respiratory Rate 18 01/07/17 01:43 Blood Pressure 158/74 01/07/17 01:43 O2 Sat by Pulse Oximetry 94 L 01/07/17 01:43 Pain Scale Pain Intensity 0 - Physical Exam General Appearance: alert Eyes, Ears, Nose, Throat Exam: pharynx normal, moist mucous membranes Neck Exam: normal inspection Cardiovascular/Respiratory Exam: normal breath sounds, heart sounds normal Abdominal Exam: soft (B.S. NORMAL) Back Exam: normal range of motion Elbow/Forearm Exam: no evidence of injury Wrist Exam: no evidence of injury Hand Exam: swelling (MILD EDEMA AND ERYTHEMA OF THE DISTAL PHALANX LEFT SMALL FINGER WITH ~ 3MM DIAMETER DARK CRUSTY PATCH OF EPIDERMIS AT THE TIP; GOOD CAPILLARY REFILL AT THE TIP OF THE LEFT SMALL FINGER AND FULL ROM OF THE LEFT SMALL FINGER.) Mental Status Exam: alert, cooperative Skin Exam: other (LEFT BKA) SpO2 Interpretation: normal SpO2: 94 Oxygen Delivery: Room Air - Course Nursing assessment & vital signs reviewed: Yes Ordered Tests: Active Orders 24 hr Category Date Time Status Wound Care STAT Care 01/07/17 02:43 Active CBC W DIFF Stat Lab 01/07/17 02:17 Completed Lab/Rad Data: Laboratory Result Diagrams 01/07/17 02:17 Laboratory Results 01/07/17 Range/Units 02:17 WBC 14.3 H (4.0-10.5) K/mm3 RBC 4.86 (4.1-5.4) M/mm3 Hgb 15.0 (12.0-16.0) gm/dl Hct 45.9 (35-47) % MCV 94.4 (78-100) fl MCH 30.9 (26-32) pg MCHC 32.7 (32-36) g/dl RDW 15.1 H (11.5-14.0) % Plt Count 232 (150-450) K/mm3 MPV 10.9 H (6-9.5) fl Gran % 71.9 H (36.0-66.0) % Lymphocytes % 19.9 L (24.0-44.0) % Monocytes % 6.1 (0.0-12.0) % Eosinophils % 1.7 (0.00-5.0) % Basophils % 0.4 (0.0-0.4) % Basophils # 0.06 (0-0.4) - Progress Progress Note: 01/07/17 02:50 PT STATES HER WBC COUNT OF 14,300 IS WHAT IT USUALLY RUNS. - Departure Time of Disposition: 02:51 Departure Disposition: Home Clinical Impression: HEALING BURN TO LEFT SMALL FINGER Condition: Stable Critical Care Time: No Referrals: RABIA PATE [Primary Care Provider] - Instructions: Servin Additional Instructions: FOLLOW UP WITH WOUND CARE PRE-SCHEDULED TODAY. CONTINUE CLINDAMYCIN.
[2017-01-07 02:55] VITALS: BP 147/73; PULSE 85; O2SAT 93
== END 2017-01-07 02:59 | disposition home or self-care (01) ==
LOC: ED 01:33
DX: T23.222D Burn of second degree of single left finger (nail) except thumb, subsequent encounter (principal); X19.XXXD Contact with other heat and hot substances, subsequent encounter; Z79.899 Other long term (current) drug therapy
CPT/HCPCS: 36415; 85025

== ENCOUNTER 2017-02-05 22:20 | Emergency (ER) | payer OTHER | END 2017-02-05 22:55 | disposition left against medical advice (07) | LOC: ED 22:20 | DX: Z53.9 Procedure and treatment not carried out, unspecified reason (principal) ==

== ENCOUNTER 2017-04-01 21:51 | Emergency (ER) | payer OTHER ==
[2017-04-01] MEDS ORDERED: Phenergan 25 MG INJ IM ONE (22:31)
--- NOTE | 2017-04-01 22:34 | ERPHSYRPT ---
- History of Present Illness Time Seen by Provider: 04/01/17 22:25 Historian: patient Exam Limitations: no limitations Patient Subjective Stated Complaint: N/V Triage Nursing Assessment: Pt presents to the ED with complaints of N/V since 1600 today. Pt states she took Zofran but was unable to keep in system. Pt states no pain at this time. Pt states "I just want something for nausea." No distress noted, skin PWD. Physician History: FOR THE PAST 6.5 HOURS PT HAS HAD VOMITING X5 WITHOUT BLOOD AND NAUSEA SINCE THIS AM. PT DENIES ABDOMINAL PAIN, DYSURIA, FEVER, CHEST PAIN, SHORTNESS OF AIR. Allergies/Adverse Reactions: Iodinated Contrast- Oral and IV Dye [IV Dye, Iodine Containing Contrast ] Allergy (Severe, Verified 01/07/17 01:59) HIVES theophylline [From Navneet-Dur] Adverse Reaction (Verified 01/07/17 01:59) Vomiting vancomycin Adverse Reaction (Verified 01/07/17 01:59) Home Medications: Clopidogrel Bisulfate 75 mg [PLAVIX 75 MG Tablet] 75 mg PO DAILY 01/15/14 [History] Furosemide [Lasix] 40 mg PO DAILY 01/15/14 [History] Metoprolol Succinate 50 mg [Toprol Xl 50 MG] 100 mg PO DAILY 01/15/14 [ History] Allopurinol 100 mg [Zyloprim 100 mg] 100 mg PO DAILY 02/04/14 [History] Linagliptin [Tradjenta] 5 mg PO DAILY 02/04/14 [History] Escitalopram Oxalate 10 mg [Lexapro 10 MG] 10 mg PO DAILY 12/11/16 [History] Loratadine 10 mg [Claritin 10 mg] 10 mg PO DAILY 12/11/16 [History] Bisacodyl 5 mg [Dulcolax 5 mg] 10 mg PO DAILY 12/12/16 [History] Esomeprazole Magnesium [Nexium] 20 mg PO DAILY 12/12/16 [History] Gemfibrozil 600 mg [Lopid 600 mg] 600 mg PO DAILY 12/12/16 [History] Insulin Lispro [Humalog] 100 unit SQ UD 12/12/16 [History] Levalbuterol HCl 1.25 MG/0.5M* [Xopenex 1.25 MG/0.5 ML UD NEBULE] 1.25 mg IH DAILY PRN PRN 12/12/16 [History] Valsartan/Hydrochlorothiazide [Diovan Hct 160-25 mg Tablet] 1 each PO DAILY [History] Clindamycin HCl 300 mg PO QID 01/07/17 [History] Hx Tetanus, Diphtheria Vaccination/Date Given: Yes Hx Influenza Vaccination/Date Given: Yes Hx Pneumococcal Vaccination/Date Given: No Immunizations Up to Date: Yes - Review of Systems Constitutional: No Fever Respiratory: No Dyspnea Cardiac: No Chest Pain Abdominal/Gastrointestinal: Nausea, Vomiting, No Abdominal Pain Genitourinary Symptoms: No Dysuria All Other Systems: Reviewed and Negative - Past Medical History Pertinent Past Medical History: Yes Neurological History: No Pertinent History ENT History: Cataracts Cardiac History: Hypertension Respiratory History: COPD Endocrine Medical History: Adrenal Insufficiency, Diabetes Type II Musculoskeletal History: Arthritis GI Medical History: Gallbladder Disease History: Other Psycho-Social History: Anxiety, Bipolar, Depression, Panic Disorder Female Reproductive Disorders: Other Other Medical History: L BKA - Past Surgical History Past Surgical History: Yes Neuro Surgical History: No Pertinent History Cardiac: Cardiac Catheterization, Cardiac Stent Respiratory: No Pertinent History Gastrointestinal: No Pertinent History Genitourinary: No Pertinent History Musculoskeletal: Amputation, Orthopedic Surgery Female Surgical History: Hysterectomy Other Surgical History: screw in toe- boxer break, removal of Bible cyst, cataracts, amputation left below the knee - Social History Smoking Status: Current every day smoker How long have you smoked: 20years Exposure to second hand smoke: Yes Drug Use: none Patient Lives Alone: No - Female History Hx Last Menstrual Period: 03/07/2017 Hx Now: No - Nursing Vital Signs Nursing Vital Signs: Initial Vital Signs Temperature 98.0 F 04/01/17 22:02 Pulse Rate 86 04/01/17 22:02 Respiratory Rate 16 04/01/17 22:02 Blood Pressure 191/85 04/01/17 22:02 O2 Sat by Pulse Oximetry 91 L 04/01/17 22:02 Pain Scale Pain Intensity 0 - Physical Exam General Appearance: alert Eye Exam: PERRL/EOMI Ears, Nose, Throat Exam: pharynx normal, moist mucous membranes Neck Exam: normal inspection Respiratory Exam: lungs clear Cardiovascular Exam: normal heart sounds Gastrointestinal/Abdomen Exam: soft, normal bowel sounds, No tenderness Back Exam: normal range of motion Extremity Exam: other (LEFT BKA) Neurologic Exam: alert, cooperative SpO2 Interpretation: borderline oxygenation SpO2: 91 Oxygen Delivery: Room Air - Course Nursing assessment & vital signs reviewed: Yes EKG Interpreted by Me: RATE (80), Sinus Rhythm, NORMAL AXIS, NORMAL INTERVALS Ordered Tests: Active Orders 24 hr Category Date Time Status EKG-ER Only STAT Care 04/01/17 23:16 Active CHEST 2 VIEWS (PA AND LAT) Stat Exams 04/01/17 Ordered ABG [ARTERIAL BLOOD GASES] Stat Lab 04/01/17 22:55 Completed AMYLASE Stat Lab 04/01/17 23:07 Completed CBC W DIFF Stat Lab 04/01/17 23:07 Completed CMP Stat Lab 04/01/17 23:07 Completed CULTURE,URINE Stat Lab 04/01/17 23:08 Received LIPASE Stat Lab 04/01/17 23:07 Completed TROPONIN Q3H Lab 04/01/17 23:18 Completed TROPONIN Q3H Lab 04/02/17 02:30 Ordered TROPONIN Q3H Lab 04/02/17 05:30 Ordered TROPONIN Q3H Lab 04/02/17 08:30 Ordered TROPONIN Q3H Lab 04/02/17 11:30 Ordered UA W/ MICROSCOPIC Stat Lab 04/01/17 23:08 Completed Medication Summary Discontinued Medications Generic Name Dose Route Start Last Admin Trade Name Freq PRN Reason Stop Dose Admin Promethazine HCl 25 mg 04/01/17 22:31 04/01/17 22:36 Phenergan 25 Mg Inj IM 04/01/17 22:32 25 mg STAT ONE Administration Promethazine HCl Confirm 04/01/17 22:35 Phenergan 25 Mg Inj Administered 04/01/17 22:36 Dose 25 mg .ROUTE .STK-MED ONE Lab/Rad Data: Laboratory Result Diagrams 04/01/17 23:07 04/01/17 23:07 Laboratory Results 04/01/17 04/01/17 04/01/17 Range/Units 23:18 23:08 23:07 WBC (4.0-10.5) K/mm3 RBC (4.1-5.4) M/mm3 Hgb (12.0-16.0) gm/dl Hct (35-47) % MCV (78-100) fl MCH (26-32) pg MCHC (32-36) g/dl RDW (11.5-14.0) % Plt Count (150-450) K/mm3 MPV (6-9.5) fl Gran % (36.0-66.0) % Lymphocytes % (24.0-44.0) % Monocytes % (0.0-12.0) % Eosinophils % (0.00-5.0) % Basophils % (0.0-0.4) % Basophils # (0-0.4) Puncture Site pCO2 (35-45) mmHg pO2 (75-100) mmHg Base Excess (-2.0-2.0) O2 Saturation (94-100) g/dF ABG pH (7.35-7.45) ABG HCO3 (22-28) ABG O2 Sat (Measured) (95-100) % Keenan Test A-a Gradient a/A Ratio Hemoglobin Carboxyhemoglobin (0.0-6.9) % THgb Methemoglobin (1.4-1.5) % Potassium 5.0 (3.5-5.1) Temperature C POC O2 Flow Rate % Sodium 137 (136-145) mEq/L Chloride 100 (98-107) mEq/L Carbon Dioxide 27.7 (21-32) mEq/L Anion Gap 14.4 (5-15) MEQ/L BUN 30 H (9-20) mg/dL Creatinine 1.84 H (0.55-1.30) mg/dl Estimated GFR 32 ML/MIN Glucose 106 (70-110) MG/DL Calcium 9.5 (8.5-10.1) mg/dL Total Bilirubin 0.30 (0.2-1.0) mg/dL AST 17 (15-37) U/L ALT 21 (12-78) U/L Alkaline Phosphatase 94 (46-116) U/L Troponin I < 0.017 (0.000-0.056) ng/ml Serum Total Protein 8.3 H (6.4-8.2) gm/dL Albumin 3.5 (3.4-5.0) g/dL Amylase 40 (25-115) U/L Lipase 62 L (73-393) U/L Ur Collection Type VOID Urine Color YELLOW (YELLOW) Urine Appearance CLEAR (CLEAR) Urine pH 5.0 (5-6) Ur Specific [place] 1.015 (1.005-1.025) Urine Protein 30 (Negative) Urine Ketones NEGATIVE (NEGATIVE) Urine Blood 50 (0-5) Guzman/ul Urine Nitrite NEGATIVE (NEGATIVE) Urine Bilirubin NEGATIVE (NEGATIVE) Urine Urobilinogen NORMAL (0-1) mg/dL Ur Leukocyte Esterase NEGATIVE (NEGATIVE) Urine Microscopic RBC 5-10 (0-2) /HPF Urine Microscopic WBC 0-2 (0-5) /HPF Ur Epithelial Cells MODERATE (FEW) /HPF Urine Bacteria MODERATE (NEGATIVE) /HPF Urine Culture Reflexed YES (NO) Urine Glucose NEGATIVE (NEGATIVE) mg/dL Specimen Received 04/01/17230904/01/17 04/01/17 Range/Units 23:07 22:55 WBC 18.6 H (4.0-10.5) K/mm3 RBC 5.12 (4.1-5.4) M/mm3 Hgb 15.8 (12.0-16.0) gm/dl Hct 48.2 H (35-47) % MCV 94.1 (78-100) fl MCH 30.9 (26-32) pg MCHC 32.8 (32-36) g/dl RDW 15.3 H (11.5-14.0) % Plt Count 297 (150-450) K/mm3 MPV 10.5 H (6-9.5) fl Gran % 83.4 H (36.0-66.0) % Lymphocytes % 10.8 L (24.0-44.0) % Monocytes % 4.7 (0.0-12.0) % Eosinophils % 0.8 (0.00-5.0) % Basophils % 0.3 (0.0-0.4) % Basophils # 0.05 (0-0.4) Puncture Site rr pCO2 50 H (35-45) mmHg pO2 53 L (75-100) mmHg Base Excess 1.6 (-2.0-2.0) O2 Saturation 83.5 L (94-100) g/dF ABG pH 7.36 (7.35-7.45) ABG HCO3 28.2 H (22-28) ABG O2 Sat (Measured) 91.2 L (95-100) % Keenan Test y A-a Gradient 34 a/A Ratio 0.61 Hemoglobin 16.6 Carboxyhemoglobin 7.8 H* (0.0-6.9) % THgb Methemoglobin 0.7 L (1.4-1.5) % Potassium 4.9 (3.5-5.1) Temperature 37.0 C POC O2 Flow Rate 21 % Sodium (136-145) mEq/L Chloride (98-107) mEq/L Carbon Dioxide (21-32) mEq/L Anion Gap (5-15) MEQ/L BUN (9-20) mg/dL Creatinine (0.55-1.30) mg/dl Estimated GFR ML/MIN Glucose (70-110) MG/DL Calcium (8.5-10.1) mg/dL Total Bilirubin (0.2-1.0) mg/dL AST (15-37) U/L ALT (12-78) U/L Alkaline Phosphatase (46-116) U/L Troponin I (0.000-0.056) ng/ml Serum Total Protein (6.4-8.2) gm/dL Albumin (3.4-5.0) g/dL Amylase (25-115) U/L Lipase (73-393) U/L Ur Collection Type Urine Color (YELLOW) Urine Appearance (CLEAR) Urine pH (5-6) Ur Specific [place] (1.005-1.025) Urine Protein (Negative) Urine Ketones (NEGATIVE) Urine Blood (0-5) Guzman/ul Urine Nitrite (NEGATIVE) Urine Bilirubin (NEGATIVE) Urine Urobilinogen (0-1) mg/dL Ur Leukocyte Esterase (NEGATIVE) Urine Microscopic RBC (0-2) /HPF Urine Microscopic WBC (0-5) /HPF Ur Epithelial Cells (FEW) /HPF Urine Bacteria (NEGATIVE) /HPF Urine Culture Reflexed (NO) Urine Glucose (NEGATIVE) mg/dL Specimen Received - Progress Progress Note: 04/02/17 00:01 PT WILL NOT STAY IN ER/HOSPITAL AND WANTS TO GO HOME NOW. - Departure Time of Disposition: 00:08 Departure Disposition: Home Clinical Impression: UTI, DECREASED OXYGEN SATURATION, LEFT BKA, CKD, DM, BIPOLAR DISORDER, COPD, ARTHRITIS, HTN, ANXIETY Condition: Stable Critical Care Time: No Referrals: RABIA PATE [Primary Care Provider] - Instructions: Nausea -- Adult, Vomiting -- Adult, Urinary Tract Infections in Adults Additional Instructions: FOLLOW UP WITH PRIVATE DOCTOR TOMORROW. Prescriptions: Promethazine HCl 25 mg [Phenergan 25 mg] 25 mg PO Q4H PRN PRN #14 tablet PRN Reason: Nausea/Vomiting Smz/Tmp Ds Tablet [Bactrim Ds Tablet] 1 udtab PO BID #20 tablet
[2017-04-01] MEDS ORDERED: Phenergan 25 MG INJ ONE (22:35)
[2017-04-01 23:08] LABS: A-aADO2 34; ABG HEMOGLOBIN 16.6; ABG POTASSIUM 4.9 (3.5-5.1); ARTERIAL BLD GAS O2 SATURATION 91.2 % (95-100); ARTERIAL BLOOD GAS BASE EXCESS 1.6 (-2.0-2.0); ARTERIAL BLOOD GAS FIO2 21 %; ARTERIAL BLOOD GAS PCO2 50 mmHg (35-45); ARTERIAL BLOOD GAS PO2 53 mmHg (75-100); ARTERIAL BLOOD GAS pH 7.36 (7.35-7.45); HCO3- 28.2 (22-28); HGB O2 SAT 83.5 g/dF (94-100); Methhemoglobin 0.7 % (1.4-1.5); paO2 pAO1 0.61
[2017-04-01 23:10] LABS: ABG SITE rr; ALLEN TEST OK? y; CARBOXYHEMOGLOBIN 7.8 % THgb (0.0-6.9)
[2017-04-01 23:11] LABS: BASOPHIL % 0.3 % (0.0-0.4); Basophil (Absolute #) 0.05 (0-0.4); Eosinophil % 0.8 % (0.00-5.0); Eosinophil (Absolute #) 0.15 (0-0.5); Granulocyte Absolute (ANC) 15.53 (1.4-6.9); Granulocytes % 83.4 % (36.0-66.0); Hematocrit 48.2 % (35-47); Hemoglobin 15.8 gm/dl (12.0-16.0); Lymphocyte (Absolute #) 2.01 (1.0-4.6); Lymphocytes % 10.8 % (24.0-44.0); Mean Cell Volume 94.1 fl (78-100); Mean Corpuscular Hemoglobin 30.9 pg (26-32); Mean Corpuscular Hgb Concent. 32.8 g/dl (32-36); Mean Platelet Volume 10.5 fl (6-9.5); Monocyte (Absolute #) 0.88 (0.0-1.3); Monocytes % 4.7 % (0.0-12.0); Platelet Count 297 K/mm3 (150-450); Red Blood Count 5.12 M/mm3 (4.1-5.4); Red Cell Distribution Width 15.3 % (11.5-14.0); White Blood Count 18.6 K/mm3 (4.0-10.5)
[2017-04-01 23:20] LABS: Appearance CLEAR (CLEAR); Leukocyte Esterase NEGATIVE (NEGATIVE); Nitrite NEGATIVE (NEGATIVE); Specific Gravity 1.015 (1.005-1.025)
[2017-04-01 23:21] LABS: Bacteria MODERATE /HPF (NEGATIVE); Bilirubin NEGATIVE (NEGATIVE); Blood 50 Ery/ul (0-5); Epithelial Cells MODERATE /HPF (FEW); Glucose NEGATIVE (NEGATIVE); Ketones NEGATIVE (NEGATIVE); Protein,Urine Dip 30 (Negative); Urobilinogen NORMAL mg/dL (0-1); WBC 0-2 /HPF (0-5)
[2017-04-01 23:29] LABS: ALBUMIN 3.5 g/dL (3.4-5.0); ANION GAP 14.4 MEQ/L (5-15); BILIRUBIN,TOTAL 0.3 mg/dL (0.2-1.0); Calcium 9.5 mg/dL (8.5-10.1); Carbon Dioxide 27.7 mEq/L (21-32); Creatinine 1 1.84 mg/dl (0.55-1.30); Total Protein 8.3 gm/dL (6.4-8.2)
[2017-04-02] MEDS ORDERED: BACTRIM DS TABLET PO ONE ×2 (00:08→00:13)
[2017-04-02] MEDS ORDERED: PHENERGAN 25 MG PO ONE (00:09)
[2017-04-02] MEDS ORDERED: PHENERGAN 25 MG ONE (00:14)
[2017-04-02 00:19] VITALS: BP 142/74; PULSE 80; O2SAT 93
== END 2017-04-02 00:19 | disposition home or self-care (01) ==
LOC: ED 21:51
DX: N39.0 Urinary tract infection, site not specified (principal); Z89.512 Acquired absence of left leg below knee; N18.9 Chronic kidney disease, unspecified; E11.9 Type 2 diabetes mellitus without complications; F31.9 Bipolar disorder, unspecified; J44.9 Chronic obstructive pulmonary disease, unspecified; M19.90 Unspecified osteoarthritis, unspecified site; I10 Essential (primary) hypertension; F41.9 Anxiety disorder, unspecified; Z79.899 Other long term (current) drug therapy
CPT/HCPCS: 36415; 36600; 80053; 81000; 82150; 82375; 82803; 83690; 84484; 85025; 87086; 93005; 96372; 99284; J2550; A9270-GY

== ENCOUNTER 2017-09-19 15:33 | Emergency (ER) | payer OTHER ==
[2017-09-19 15:47] VITALS: BP 155/72
--- NOTE | 2017-09-19 16:01 | ERPHSYRPT ---
- History of Present Illness Time Seen by Provider: 09/19/17 15:47 Source: patient (patient dictation box) Exam Limitations: no limitations Physician History: The patient is a 41-year-old morbidly obese female who complains of shortness of breath and cough that began yesterday. She denies fever or chills. She is worried about having pneumonia. She is becoming scared because she cannot breathe well. She went to [facility] a few minutes ago and was escorted to the ER because her O2 sat was in the 80s. She has an albuterol nebulizer at home that she used twice with minimal relief today. Her past medical history is significant for pneumonia, CAD, cardiac stent, morbid obesity, diabetes, renal failure, hypertension, high cholesterol, left leg amputation below the knee. Timing/Duration: yesterday, gradual onset, worse Cough Quality/Degree: productive cough Possible Cause: occasional episodes Modifying Factors: Improves With: albuterol nebulizer Associated Symptoms: cough, shortness of breath Allergies/Adverse Reactions: Iodinated Contrast- Oral and IV Dye [IV Dye, Iodine Containing Contrast ] Allergy (Severe, Verified 01/07/17 01:59) HIVES theophylline [From Navneet-Dur] Adverse Reaction (Verified 01/07/17 01:59) Vomiting vancomycin Adverse Reaction (Verified 01/07/17 01:59) Home Medications: Clopidogrel Bisulfate 75 mg [PLAVIX 75 MG Tablet] 75 mg PO DAILY 01/15/14 [History] Furosemide [Lasix] 40 mg PO DAILY 01/15/14 [History] Metoprolol Succinate 50 mg [Toprol Xl 50 MG] 100 mg PO DAILY 01/15/14 [ History] Allopurinol 100 mg [Zyloprim 100 mg] 100 mg PO DAILY 02/04/14 [History] Linagliptin [Tradjenta] 5 mg PO DAILY 02/04/14 [History] Escitalopram Oxalate 10 mg [Lexapro 10 MG] 10 mg PO DAILY 12/11/16 [History] Loratadine 10 mg [Claritin 10 mg] 10 mg PO DAILY 12/11/16 [History] Bisacodyl 5 mg [Dulcolax 5 mg] 10 mg PO DAILY 12/12/16 [History] Esomeprazole Magnesium [Nexium] 20 mg PO DAILY 12/12/16 [History] Gemfibrozil 600 mg [Lopid 600 mg] 600 mg PO DAILY 12/12/16 [History] Insulin Lispro [Humalog] 100 unit SQ UD 12/12/16 [History] Levalbuterol HCl 1.25 MG/0.5M* [Xopenex 1.25 MG/0.5 ML UD NEBULE] 1.25 mg IH DAILY PRN PRN 12/12/16 [History] Valsartan/Hydrochlorothiazide [Diovan Hct 160-25 mg Tablet] 1 each PO DAILY [History] Clindamycin HCl 300 mg PO QID 01/07/17 [History] Hx Tetanus, Diphtheria Vaccination/Date Given: Yes Hx Influenza Vaccination/Date Given: Yes Hx Pneumococcal Vaccination/Date Given: No - Review of Systems Constitutional: No Fever, No Chills Eyes: No Symptoms Ears, Nose, & Throat: No Symptoms Respiratory: Cough, Dyspnea, Dyspnea on Exertion (CHEUNG) Cardiac: No Chest Pain, No Edema, No Syncope Abdominal/Gastrointestinal: No Abdominal Pain, No Nausea, No Vomiting, No Diarrhea Genitourinary Symptoms: No Dysuria Musculoskeletal: No Back Pain, No Neck Pain Skin: No Rash Neurological: No Dizziness, No Focal Weakness, No Sensory Changes Psychological: No Symptoms Endocrine: No Symptoms Hematologic/Lymphatic: No Symptoms Immunological/Allergic: No Symptoms All Other Systems: Reviewed and Negative - Past Medical History Pertinent Past Medical History: Yes Neurological History: No Pertinent History ENT History: Cataracts Cardiac History: Hypertension Respiratory History: COPD Endocrine Medical History: Adrenal Insufficiency, Diabetes Type II Musculoskeletal History: Arthritis GI Medical History: Gallbladder Disease History: Other Psycho-Social History: Anxiety, Bipolar, Depression, Panic Disorder Female Reproductive Disorders: Other Other Medical History: L BKA - Past Surgical History Past Surgical History: Yes Neuro Surgical History: No Pertinent History Cardiac: Cardiac Catheterization, Cardiac Stent Respiratory: No Pertinent History Gastrointestinal: No Pertinent History Genitourinary: No Pertinent History Musculoskeletal: Amputation, Orthopedic Surgery Female Surgical History: Hysterectomy Other Surgical History: screw in toe- boxer break, removal of Bible cyst, cataracts, amputation left below the knee - Social History Smoking Status: Current every day smoker How long have you smoked: 20years Exposure to second hand smoke: Yes Drug Use: none Patient Lives Alone: No - Nursing Vital Signs Nursing Vital Signs: Initial Vital Signs Temperature 98.0 F 09/19/17 15:39 Pulse Rate 92 H 09/19/17 15:39 Respiratory Rate 22 09/19/17 15:39 Blood Pressure 155/72 09/19/17 15:39 O2 Sat by Pulse Oximetry 91 L 09/19/17 15:39 Pain Scale Pain Intensity 0 - Physical Exam General Appearance: mild distress, obese Eye Exam: PERRL/EOMI, eyes nml inspection Ears, Nose, Throat Exam: normal ENT inspection, TMs normal, pharynx normal, moist mucous membranes Neck Exam: normal inspection, non-tender, supple, full range of motion Respiratory Exam: diminished breath sounds, wheezing Cardiovascular Exam: regular rate/rhythm, normal heart sounds Gastrointestinal/Abdomen Exam: soft, No tenderness Pelvic Exam: not done Rectal Exam: not done Back Exam: normal inspection, No CVA tenderness, No vertebral tenderness Extremity Exam: normal inspection, normal range of motion Neurologic Exam: alert, oriented x 3, cooperative, normal mood/affect, sensation nml, No motor deficits Skin Exam: normal color, warm, dry, No rash Lymphatic Exam: No adenopathy SpO2 Interpretation: borderline oxygenation Oxygen Delivery: Room Air - Radiology Exams Chest X-ray Interpretation: Interpreted by me, Negative (no change comp to 2V chest ) Ordered Tests: Active Orders 24 hr Category Date Time Status IV Insertion STAT Care 09/19/17 16:07 Active Oxygen-ED Only NASAL CANNULA 2 lpm Care 09/19/17 16:07 Active CHEST 2 VIEWS (PA AND LAT) Stat Exams 09/19/17 16:07 Taken BLOOD CULTURE Stat Lab 09/19/17 16:20 Received CBC W DIFF Stat Lab 09/19/17 16:15 Completed CMP Stat Lab 09/19/17 16:15 Completed Lactic Acid Stat Lab 09/19/17 16:20 Completed NT PRO BNP Stat Lab 09/19/17 16:15 Completed TROPONIN Q3H Lab 09/19/17 16:15 Received TROPONIN Q3H Lab 09/19/17 19:15 Ordered TROPONIN Q3H Lab 09/19/17 22:15 Ordered TROPONIN Q3H Lab 09/20/17 01:15 Ordered TROPONIN Q3H Lab 09/20/17 04:15 Ordered Peak Expiratory Flow Rate ONCE RT 09/19/17 16:52 Active Respiratory Nebulizer STAT RT 09/19/17 16:08 Completed Respiratory Therapy Assessment DAILY RT 09/19/17 16:52 Active Medication Summary Generic Name Dose Route Start Last Admin Trade Name Freq PRN Reason Stop Dose Admin Ceftriaxone Sodium/Dextrose 1 g in 50 mls @ 100 mls/hr 09/19/17 17:14 17:22 Rocephin 1 Gm-D5w 50 Ml Bag IV 09/19/17 17:43 100 ml/hr STAT STA 100 mls/hr Administration Discontinued Medications Generic Name Dose Route Start Last Admin Trade Name Freq PRN Reason Stop Dose Admin Albuterol/Ipratropium 3 ml 09/19/17 16:07 09/19/17 16:49 Duoneb 0.5-3 Mg/3 Ml Neb IH 09/19/17 16:08 3 ml STAT ONE Administration Albuterol/Ipratropium Confirm 09/19/17 16:17 Duoneb 0.5-3 Mg/3 Ml Neb Administered 09/19/17 16:18 Dose 3 ml IH .STK-MED ONE Ceftriaxone Sodium/Dextrose Confirm 09/19/17 17:21 Rocephin 1 Gm-D5w 50 Ml Bag Administered 09/19/17 17:22 Dose 1 g in 50 mls @ ud IV .STK-MED ONE Methylprednisolone Sodium Succinate 125 mg 09/19/17 16:07 09/19/17 16:17 Solu-Medrol 125 Mg IV 09/19/17 16:08 125 mg STAT ONE Administration Methylprednisolone Sodium Succinate Confirm 09/19/17 16:14 Solu-Medrol 125 Mg Administered 09/19/17 16:15 Dose 125 mg .ROUTE .STK-MED ONE Lab/Rad Data: Laboratory Result Diagrams 09/19/17 16:15 09/19/17 16:15 Laboratory Results 09/19/17 09/19/17 09/19/17 Range/Units 16:20 16:15 16:15 WBC 9.9 (4.0-10.5) K/mm3 RBC 5.24 (4.1-5.4) M/mm3 Hgb 15.5 (12.0-16.0) gm/dl Hct 49.0 H (35-47) % MCV 93.5 (78-100) fl MCH 29.6 (26-32) pg MCHC 31.6 L (32-36) g/dl RDW 17.2 H (11.5-14.0) % Plt Count 222 (150-450) K/mm3 MPV 10.8 H (6-9.5) fl Gran % 80.3 H (36.0-66.0) % Eos # (Auto) 0.14 (0-0.5) Absolute Lymphs (auto) 1.20 (1.0-4.6) Absolute Monos (auto) 0.58 (0.0-1.3) Lymphocytes % 12.1 L (24.0-44.0) % Monocytes % 5.8 (0.0-12.0) % Eosinophils % 1.4 (0.00-5.0) % Basophils % 0.4 (0.0-0.4) % Absolute Granulocytes 7.96 H (1.4-6.9) Basophils # 0.04 (0-0.4) Sodium 140 (137-145) mmol/L Potassium 4.3 (3.5-5.1) mmol/L Chloride 100 (98-107) mmol/L Carbon Dioxide 30 (22-30) mmol/L Anion Gap 15.2 H (5-15) MEQ/L BUN 40 H (7-17) mg/dL Creatinine 1.90 H (0.52-1.04) mg/dL Estimated GFR 31.1 ML/MIN Glucose 147 H (74-106) mg/dL Lactic Acid 1.6 (0.4-2.0) Calcium 9.2 (8.4-10.2) mg/dL Total Bilirubin 0.50 (0.2-1.3) mg/dL AST 14 (14-36) U/L ALT 13 (0-35) U/L Alkaline Phosphatase 104 (38-126) U/L NT-Pro-B Natriuret Pep 429 (0-450) pg/mL Serum Total Protein 7.9 (6.3-8.2) g/dL Albumin 4.2 (3.5-5.0) g/dL - Progress Progress: improved Air Movement: fair Progress Note: 09/19/17 17:14 After Duo-neb treatment and solumedrol 125 mg IV, pt is feeling better and wishes to go home. - Departure Time of Disposition: 17:31 Departure Disposition: Home Clinical Impression: Bronchitis Condition: Stable Critical Care Time: No Referrals: RABIA PATE [Primary Care Provider] - Additional Instructions: You have bronchitis. Your chest x-ray was clear. You were given Solu-Medrol 125 mg and Rocephin 1 g by IV in the ER. You were also given a DuoNeb treatment. Take azithromycin 500 mg today and then 250 mg daily for days 2 through 5. Take prednisone beginning tomorrow 60 mg daily for 3 days. Follow- up with your primary medical doctor on Thursday. Prescriptions: Azithromycin 250 mg [Zithromax 250 MG TABLET] 250 mg PO ZPACK #6 tablet Prednisone 60 mg PO DAILY #9 tablet
[2017-09-19] MEDS ORDERED: solu-MEDROL 125 MG IV ONE (16:07)
[2017-09-19] MEDS ORDERED: DUONEB 0.5-3 MG/3 ml Neb IH ONE ×2 (16:07→16:17)
[2017-09-19] MEDS ORDERED: solu-MEDROL 125 MG ONE (16:14)
[2017-09-19 16:26] LABS: BASOPHIL % 0.4 % (0.0-0.4); Basophil (Absolute #) 0.04 (0-0.4); Eosinophil % 1.4 % (0.00-5.0); Eosinophil (Absolute #) 0.14 (0-0.5); Granulocyte Absolute (ANC) 7.96 (1.4-6.9); Granulocytes % 80.3 % (36.0-66.0); Hemoglobin 15.5 gm/dl (12.0-16.0); Lymphocytes % 12.1 % (24.0-44.0); Mean Cell Volume 93.5 fl (78-100); Mean Corpuscular Hemoglobin 29.6 pg (26-32); Mean Corpuscular Hgb Concent. 31.6 g/dl (32-36); Mean Platelet Volume 10.8 fl (6-9.5); Monocyte (Absolute #) 0.58 (0.0-1.3); Monocytes % 5.8 % (0.0-12.0); Platelet Count 222 K/mm3 (150-450); Red Blood Count 5.24 M/mm3 (4.1-5.4); Red Cell Distribution Width 17.2 % (11.5-14.0); White Blood Count 9.9 K/mm3 (4.0-10.5)
[2017-09-19 16:54] LABS: ALBUMIN 4.2 g/dL (3.5-5.0); ANION GAP 15.2 MEQ/L (5-15); BILIRUBIN,TOTAL 0.5 mg/dL (0.2-1.3); Calcium 9.2 mg/dL (8.4-10.2); Creatinine 1 1.9 mg/dL (0.52-1.04); Potassium 4.3 mmol/L (3.5-5.1); Total Protein 7.9 g/dL (6.3-8.2)
[2017-09-19] MEDS ORDERED: ROCEPHIN 1 Gm-D5w 50 ml Bag** 1 G/50 ML IVPB IV STA (17:14)
[2017-09-19] MEDS ORDERED: ROCEPHIN 1 Gm-D5w 50 ml Bag** 1 G/50 ML IVPB IV ONE (17:21)
[2017-09-19 17:57] VITALS: PULSE 78; O2SAT 85
--- NOTE | 2017-09-19 21:26 | XRAY ---
Indication: Short of breath. Comparison: April 14, 2017. PA/lateral chest obtained in a wheelchair again slightly underinflated with prominent interstitial lung markings. No focal infiltrate, consolidation, or large effusion. Heart is not enlarged. Bony thorax is intact. Impression: Nonacute underinflated chest. Superimposed pneumonia not completely excluded in the right clinical setting.
== END 2017-09-19 17:57 | disposition home or self-care (01) ==
LOC: ED 15:33
DX: J40 Bronchitis, not specified as acute or chronic (principal); Z79.01 Long term (current) use of anticoagulants; Z79.899 Other long term (current) drug therapy; E11.9 Type 2 diabetes mellitus without complications; Z79.4 Long term (current) use of insulin; E66.01 Morbid (severe) obesity due to excess calories
CPT/HCPCS: 36000; 36415; 71046; 80053; 83605; 83880; 84484; 85025; 87040; 94150; 94640; 96365; 96374; 99284; J0696; J2930; A9270-GY

== ENCOUNTER 2017-09-21 20:54 | Emergency (ER) | payer OTHER ==
[2017-09-21 21:08] VITALS: BP 171/77
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
[2017-09-21 21:28] LABS: BASOPHIL % 0.2 % (0.0-0.4); Basophil (Absolute #) 0.02 (0-0.4); Eosinophil % 2.1 % (0.00-5.0); Eosinophil (Absolute #) 0.24 (0-0.5); Granulocyte Absolute (ANC) 7.92 (1.4-6.9); Granulocytes % 70.8 % (36.0-66.0); Hematocrit 52.3 % (35-47); Hemoglobin 16.8 gm/dl (12.0-16.0); Lymphocyte (Absolute #) 2.11 (1.0-4.6); Lymphocytes % 18.8 % (24.0-44.0); Mean Cell Volume 92.9 fl (78-100); Mean Corpuscular Hemoglobin 29.8 pg (26-32); Mean Corpuscular Hgb Concent. 32.1 g/dl (32-36); Monocyte (Absolute #) 0.91 (0.0-1.3); Monocytes % 8.1 % (0.0-12.0); Platelet Count 239 K/mm3 (150-450); Red Blood Count 5.63 M/mm3 (4.1-5.4); Red Cell Distribution Width 17.6 % (11.5-14.0); White Blood Count 11.2 K/mm3 (4.0-10.5)
[2017-09-21] MEDS ORDERED: PROVENTIL 2.5 MG/3 ML NEB IH ONE (21:30)
[2017-09-21] MEDS: PROVENTIL 2.5 MG/3 ML NEB IH ONE (21:31)
[2017-09-21 21:41] VITALS: PULSE 78; O2SAT 93
[2017-09-21 21:46] LABS: ALBUMIN 4.4 g/dL (3.5-5.0); ANION GAP 16.9 MEQ/L (5-15); BILIRUBIN,TOTAL 0.4 mg/dL (0.2-1.3); Calcium 9.5 mg/dL (8.4-10.2); Creatinine 1 1.92 mg/dL (0.52-1.04); Potassium 4.5 mmol/L (3.5-5.1); Total Protein 8.1 g/dL (6.3-8.2)
[2017-09-21 21:47] LABS: AMYLASE 39 U/L (30-110); LIPASE 35 U/L (23-300)
[2017-09-21] MEDS ORDERED: Sodium Chloride 0.9% 1000 ML 1,000 ML IV SCH (22:00)
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
== END 2017-09-21 22:23 | disposition left against medical advice (07) ==
LOC: ED 20:54
DX: R10.12 Left upper quadrant pain (principal); V49.49XA Driver injured in collision with other motor vehicles in traffic accident, initial encounter; J40 Bronchitis, not specified as acute or chronic; I45.10 Unspecified right bundle-branch block; Z79.01 Long term (current) use of anticoagulants; Z79.899 Other long term (current) drug therapy; E11.9 Type 2 diabetes mellitus without complications; Z79.4 Long term (current) use of insulin
CPT/HCPCS: 71045; 80053; 82150; 82962; 83690; 84484; 85025; 93005; 94150; 94640; 99285; J7609; 36415; A9270-GY

== ENCOUNTER 2017-10-21 04:28 | Observation (INO) | payer OTHER ==
[2017-10-21 05:57] LABS: BASOPHIL % 0.4 % (0.0-0.4); Basophil (Absolute #) 0.04 (0-0.4); Eosinophil % 1.5 % (0.00-5.0); Eosinophil (Absolute #) 0.15 (0-0.5); Granulocyte Absolute (ANC) 7.26 (1.4-6.9); Granulocytes % 70.4 % (36.0-66.0); Hematocrit 48.6 % (35-47); Lymphocyte (Absolute #) 1.89 (1.0-4.6); Lymphocytes % 18.3 % (24.0-44.0); Mean Cell Volume 93.8 fl (78-100); Mean Corpuscular Hgb Concent. 30.9 g/dl (32-36); Mean Platelet Volume 11.1 fl (6-9.5); Monocyte (Absolute #) 0.97 (0.0-1.3); Monocytes % 9.4 % (0.0-12.0); Platelet Count 255 K/mm3 (150-450); Red Blood Count 5.18 M/mm3 (4.1-5.4); Red Cell Distribution Width 17.6 % (11.5-14.0); White Blood Count 10.3 K/mm3 (4.0-10.5)
[2017-10-21 06:00] LABS: ADD MANUAL DIFF? NO (NO)
[2017-10-21 06:12] LABS: ALBUMIN 3.8 g/dL (3.5-5.0); ALKALINE PHOSPHATASE 106 U/L (38-126); ANION GAP 10.4 MEQ/L (5-15); BLOOD UREA NITROGEN 75 mg/dL (7-17); CHLORIDE 102 mmol/L (98-107); CK-Creatinine Phosphokinase 94 U/L (30-135); Calcium 9.1 mg/dL (8.4-10.2); Carbon Dioxide 30 mmol/L (22-30); Creatinine 1 2.63 mg/dL (0.52-1.04); EST GLOMERULAR FILTRATION RATE 21.4 ML/MIN; Glucose 72 mg/dL (74-106); NT PRO BNP 1580 pg/mL (0-450); SGOT/AST 17 U/L (14-36); SGPT/ALT 16 U/L (0-35); SODIUM 137 mmol/L (137-145); Total Protein 7.5 g/dL (6.3-8.2)
[2017-10-21] MEDS ORDERED: xanAX 0.5 MG (06:29)
[2017-10-21] MEDS: xanAX 0.5 MG PO (06:31)
[2017-10-21 07:01] LABS: TROPONIN 0.018 ng/mL (0.000-0.034)
[2017-10-21] MEDS ORDERED: Sodium Chloride 0.9% 10 ML FLUSH Syringe IV ×2 (08:40→14:00)
[2017-10-21] MEDS ORDERED: Lasix 40 MG/4 ML IV (10:00)
[2017-10-21 10:28] LABS: TROPONIN 0.015 ng/mL (0.000-0.034)
[2017-10-21] MEDS ORDERED: INSULIN REGULAR HUMAN 1 UNIT SQ (10:45)
[2017-10-21] MEDS ORDERED: VITAMIN D2 PO (10:45)
[2017-10-21] MEDS ORDERED: MEDICATION INTERVENTION PO (11:00)
[2017-10-21] MEDS ORDERED: MEDICATION INTERVENTION MC (11:00)
[2017-10-21] MEDS: DULCOLAX 5 MG PO (11:17)
[2017-10-21] MEDS: LEVOFLOXACIN 750MG/150ML D5W 750 MG/150 ML BAG IV (11:17)
[2017-10-21] MEDS: Toprol Xl 100 MG PO (11:18)
[2017-10-21] MEDS: CLARITIN 10 MG PO (11:18)
[2017-10-21] MEDS: Lasix 40 MG PO (11:18)
[2017-10-21] MEDS: Protonix 40MG Tablet PO (11:18)
[2017-10-21] MEDS: Januvia 50 MG PO (11:18)
[2017-10-21] MEDS: Lexapro 10 MG PO (11:18)
[2017-10-21] MEDS: hydroDIURIL 25 MG PO (11:18)
[2017-10-21] MEDS: PLAVIX 75 MG Tablet PO (11:19)
[2017-10-21] MEDS: LOPID 600 MG PO (11:19)
[2017-10-21] MEDS: DIOVAN 80 MG PO (11:19)
[2017-10-21] MEDS ORDERED: LYRICA 100MG PO (22:00)
[2017-10-22] MEDS ORDERED: NON-FORMULARY ITEM (Linagliptin [Tradjenta] 5 MG) PO (10:00)
[2017-10-22] MEDS ORDERED: NON-FORMULARY ITEM (Esomeprazole Magnesium [Nexium] 40 MG) PO (10:00)
[2017-10-22] MEDS ORDERED: VALSARTAN PO (10:00)
[2017-10-22] MEDS ORDERED: HYDROCHLOROTHIAZIDE PO (10:00)
== END 2017-10-21 12:45 | disposition left against medical advice (07) ==
LOC: ED 04:28 → MED SURG 07:22
CPT/HCPCS: 36415; 71045; 80053; 82550; 83880; 84484; 85025; 87040; 93005; 94760; J1956

== ENCOUNTER 2017-10-22 15:43 | Observation (INO) | payer OTHER ==
[2017-10-22] MEDS ORDERED: xanAX 0.25 MG PO PRN (16:14)
[2017-10-22] MEDS ORDERED: Ativan 2 MG/1 ML VIAL IV ONE (16:15)
[2017-10-22] MEDS ORDERED: INSULIN REGULAR HUMAN 1 UNIT SQ SCH (16:15)
[2017-10-22] MEDS ORDERED: Zofran 4 MG/2 ML VIAL IV PRN (16:16)
[2017-10-22] MEDS ORDERED: Lactated Ringers 1,000 ML IV SCH (16:30)
[2017-10-22] MEDS ORDERED: PATIENT OWN MEDICATION IV SCH (16:30)
[2017-10-22] MEDS: CLINDAMYCIN-D5W 600 MG/50 ML*** 600 MG/50 ML BAG IV SCH (16:46)
[2017-10-22] MEDS ORDERED: Zithromax 500 MG/ 250 ML NaCl Premix 500 MG/250 ML IVPB IV SCH (17:00)
[2017-10-22] MEDS ORDERED: LYRICA 100MG PO SCH (22:00)
[2017-10-22] MEDS ORDERED: PROVENTIL 2.5 MG/3 ML NEB IH ONE (23:00)
[2017-10-22] MEDS: PROVENTIL 2.5 MG/3 ML NEB IH PRN (23:03)
[2017-10-22] MEDS ORDERED: PROVENTIL COMMON CANISTER IH PRN (23:57)
[2017-10-23] MEDS: CLINDAMYCIN-D5W 600 MG/50 ML*** 600 MG/50 ML BAG IV SCH (00:31)
[2017-10-23] MEDS ORDERED: Lactated Ringers 1,000 ML IV SCH (01:00)
[2017-10-23 06:33] LABS: ANION GAP 14.1 MEQ/L (5-15); Creatinine 1 2.52 mg/dL (0.52-1.04); Potassium 4.8 mmol/L (3.5-5.1)
[2017-10-23] MEDS: PROVENTIL 2.5 MG/3 ML NEB IH PRN (08:01)
[2017-10-23] MEDS ORDERED: NORCO 5/325 MG PO PRN (08:42)
--- NOTE | 2017-10-23 08:52 | PCM.HP ---
History of Present Illness - Chief Complaint Chief Complaint: Positive blood cultures, pneumonia History of Present Illness: is a 41 year old female morbidly obese pt of [facility], with DM , HTN, chronic renal failure, and restrictive lung dz who was admitted yesterday with positive blood cultures, dehydration, and pneumonia. She has severe anxiety and had 2 weeks of feeling poorly with cough, and 2d of decreased po intake. Two days ago she went to the ER and was admitted for pneumonia; after a few hours she signed out AMA. She saw Shilpa Paul yesterday in office; the lab had called that morning with a positive blood culture (GPCs, diplococci) so she was given 1g rocephin IM in office and sent to outpatient infusion for IV fluids as she looked dehydrated to Shilpa. Her labs revealed elevated Cr over baseline. I saw her in infusion where she expressed great anxiety and "panic." she was given ativan IV and then xanax prn po. Overnight she did take some xanax and had been sleeping in her chair, as she does at home. She did complain of hip pain last night; was seeing Dr. Arnett but has decided to transfer to [facility] pain management. Lab yesterday afternoon reported GPCs then this morning stated it is coagulase negative Staph, likely contaminant. Pt has been on clindamycin IV overnight. - Review of Systems Constitutional: Weakness Respiratory: Cough, Short Of Breath Cardiac: Edema Abdominal/Gastrointestinal: Nausea Musculoskeletal: Back Pain, Other (hip pain) Psychological: Anxiety, No Suicidal Ideations All Other Systems: Reviewed and Negative Medications & Allergies Home Medications: Home Medication List Clopidogrel Bisulfate 75 mg [PLAVIX 75 MG Tablet] 75 mg PO DAILY 01/15/14 [History Confirmed 10/22/17] Linagliptin [Tradjenta] 5 mg PO DAILY 02/04/14 [History Confirmed 10/22/17] Escitalopram Oxalate 10 mg [Lexapro 10 MG] 10 mg PO DAILY 12/11/16 [History Confirmed 10/22/17] Loratadine 10 mg [Claritin 10 mg] 10 mg PO DAILY 12/11/16 [History Confirmed 10/22/17] Gemfibrozil 600 mg [Lopid 600 mg] 600 mg PO DAILY 12/12/16 [History Confirmed 10/22/17] Valsartan/Hydrochlorothiazide [Diovan Hct 160-25 mg Tablet] 1 each PO DAILY [History Confirmed 10/22/17] Bisacodyl 5 mg [Dulcolax 5 mg] 10 mg PO DAILY 10/21/17 [History Confirmed 10/22/17] Ergocalciferol (Vitamin D2) [Vitamin D2] 1 cap PO UD 10/21/17 [History Confirmed 10/22/17] Insulin Regular, Human [Humulin R U-500] 1 units SQ UD 10/21/17 [History Confirmed 10/22/17] Pregabalin [Lyrica 100Mg] 200 mg PO HS 10/21/17 [History Confirmed 10/22/17] Albuterol 2.5 mg/3 ml Neb [Proventil 2.5 mg/3 ml Neb] 2.5 mg IH Q4HPRN PRN 10/22/17 [History Confirmed 10/22/17] Albuterol 8 gm Mdi Hfa [Ventolin Hfa MDI] 2 puff IH Q4HPRN PRN 10/22/17 [ History Confirmed 10/22/17] Esomeprazole Magnesium [Nexium] 40 mg PO DAILY 10/22/17 [History Confirmed 10/22] Furosemide [Lasix] 40 mg PO BID 10/22/17 [History Confirmed 10/22/17] Metoprolol Tartrate [Lopressor] 100 mg PO DAILY 10/22/17 [History Confirmed 08/03] Allergies/Adverse Reactions: Allergies Allergy/AdvReac Type Severity Reaction Status Date / Time Iodinated Contrast- Oral and Allergy Severe Rash Verified 10/22/17 16:18 IV Dye [IV Dye, Iodine Containing Contrast ] vancomycin AdvReac Severe Verified 10/22/17 16:18 liraglutide [From Victoza] AdvReac Nausea and Verified 10/22/17 16:18 Vomiting theophylline [From Navneet-Dur] AdvReac Vomiting Verified 10/22/17 16:18 - Past Medical History Past Medical History: Yes Neurological History: No Pertinent History ENT History: Cataracts Cardiac History: Hypertension, Myocardial Infarction ([place]) Respiratory History: Bronchitis, COPD Endocrine Medical History: Adrenal Insufficiency, Diabetes Type II Musculoskelatal History: Arthritis GI Medical History: Gallbladder Disease History: Other Pyscho-Social History: Anxiety, Bipolar, Depression, Panic Disorder Reproductive Disorders: Other Comment: LBK, Acute Kidney failure due to medication in the past. renal failure - Female History Are you now?: No - Past Surgical History Past Surgical History: Yes Neuro Surgical History: No Pertinent History Cardiac History: Cardiac Catheterization, Cardiac Stent Respiratory Surgery: No Pertinent History GI Surgical History: No Pertinent History Genitourinary Surgical Hx: No Pertinent History Musculskeletal Surgical Hx: Amputation, Orthopedic Surgery Female Surgical History: Other Other Surgical History: screw in toe- boxer break, removal of Bible cyst, cataracts, amputation left below the knee, oopherectomy. - Social History Smoking Status: Current every day smoker How long have you smoked: 20 Exposure to second hand smoke: Yes Alcohol: None Drug Use: none - Physical Exam Vital Signs: Vital Signs - 24 hr Temp Pulse Resp BP Pulse Ox 10/23/17 08:08 73 22 92 L 10/23/17 08:00 98.1 F 84 21 102/51 93 L 10/23/17 04:00 98.6 F 86 24 147/79 90 L 10/23/17 00:00 98.5 F 87 16 143/78 93 L 10/22/17 23:03 87 16 93 L 10/22/17 20:00 98.4 F 92 H 24 158/81 91 L 10/22/17 15:58 97.9 F 74 18 135/75 90 L 10/22/17 15:50 97.9 F 74 18 135/75 90 L Oxygen-Last 24 hours O2 Percentage 4 Liters = 36% O2 Percentage 4 Liters = 36% O2 Percentage 4 Liters = 36% O2 Percentage 4 Liters = 36% O2 Percentage 4 Liters = 36% O2 Percentage 4 Liters = 36% O2 Percentage 4 Liters = 36% General Appearance: obese (morbidly), other (somnolent; wakes to touch) Neurologic Exam: alert, cooperative Eye Exam: eyes nml inspection Respiratory Exam: lungs clear, diminished breath sounds, No crackles/rales, No rhonchi, No wheezing Cardiovascular Exam: regular rate/rhythm, normal heart sounds, No murmur Extremity Exam: other (LLE s/p remote BKA. RLE 1+ edema) Skin Exam: normal color, warm, dry, No rash Results - Labs Lab/Micro Results: Accuchecks Date 10/22/17 Date 10/22/17 Time 22:00 Time 16:30 Accucheck Value: 171 Accucheck Value: 81 Lab Results-Last 24 Hours 10/22/17 10/23/17 Range/Units Unknown 05:36 Sodium 140 (137-145) mmol/L Potassium 4.8 (3.5-5.1) mmol/L Chloride 100 (98-107) mmol/L Carbon Dioxide 30 (22-30) mmol/L Anion Gap 14.1 (5-15) MEQ/L BUN 69 H (7-17) mg/dL Creatinine 2.52 H (0.52-1.04) mg/dL Estimated GFR 22.5 ML/MIN Glucose 47 L* (74-106) mg/dL Hemoglobin A1c 6.58 H (4.5-6.0) % Calcium 9.0 (8.4-10.2) mg/dL Accuchecks Date 10/22/17 Date 10/22/17 Time 22:00 Time 16:30 Accucheck Value: 171 Accucheck Value: 81 - Radiology Impressions Radiology Exams & Impressions: Radiology Procedures Category Date Time Status CHEST 2 VIEWS (PA AND LAT) Routine Exams 10/23/17 Ordered - Other Procedures and Tests Respiratory Therapy 10/22/17 23:55 Oxygen NASAL CANNULA 4 lpm 10/22/17 23:56 Peak Expiratory Flow Rate ONCE Respiratory Therapy Assessment DAILY Assessment/Plan (1) Pneumonia Current Visit: No Status: Acute Onset Date: ~10/21/17 Qualifiers: Pneumonia type: due to unspecified organism Laterality: left Lung location: lower lobe of lung Qualified Code(s): J18.1 - Lobar pneumonia, unspecified organism Assessment & Plan: Treating for pna regardless of CXR due to clinical sx. rocephin and zithromax. stopping clindamycin as cultures are likely contamination. Code(s): J18.9 - PNEUMONIA, UNSPECIFIED ORGANISM (2) Dehydration Current Visit: Yes Status: Acute Assessment & Plan: gave IV fluids yesterday and overnight; turned down to 80cc/hr LR due to concern for CHF. I did hold her lasix. Code(s): E86.0 - DEHYDRATION (3) CHF (congestive heart failure) Current Visit: No Status: Acute Onset Date: ~10/21/17 Qualifiers: Heart failure type: unspecified Heart failure chronicity: acute Qualified Code(s): I50.9 - Heart failure, unspecified Code(s): I50.9 - HEART FAILURE, UNSPECIFIED (4) Renal failure (ARF), acute on chronic Current Visit: No Status: Acute Onset Date: ~10/21/17 Qualifiers: Acute renal failure type: unspecified Chronic kidney disease stage: unspecified stage Qualified Code(s): N17.9 - Acute kidney failure, unspecified ; N18.9 - Chronic kidney disease, unspecified Assessment & Plan: Will consult with Dr. Sneed. Pt does not want to see Dr. Santana. Code(s): N17.9 - ACUTE KIDNEY FAILURE, UNSPECIFIED; N18.9 - CHRONIC KIDNEY DISEASE, UNSPECIFIED (5) Diabetes mellitus Current Visit: No Status: Chronic Qualifiers: Diabetes mellitus type: type 2 Diabetes mellitus alf insulin use: unspecified alf insulin use status Diabetes mellitus complication status : with kidney complications Diabetes mellitus complication detail: with chronic kidney disease Chronic kidney disease stage: stage 3 (moderate) Qualified Code(s): E11.22 - Type 2 diabetes mellitus with diabetic chronic kidney disease; N18.3 - Chronic kidney disease, stage 3 (moderate) Code(s): E11.9 - TYPE 2 DIABETES MELLITUS WITHOUT COMPLICATIONS
[2017-10-23] MEDS ORDERED: ENOXAPARIN SODIUM SQ SCH (10:00)
[2017-10-23] MEDS ORDERED: hydroDIURIL 25 MG PO SCH (10:00)
[2017-10-23] MEDS ORDERED: VALSARTAN PO SCH (10:00)
[2017-10-23] MEDS ORDERED: Toprol Xl 50 MG PO SCH (10:00)
[2017-10-23] MEDS ORDERED: Lexapro 10 MG PO SCH (10:00)
[2017-10-23] MEDS ORDERED: Protonix 40MG Tablet PO SCH (10:00)
[2017-10-23] MEDS ORDERED: NON-FORMULARY ITEM (Esomeprazole Magnesium [Nexium] 40 MG) PO SCH (10:00)
[2017-10-23] MEDS ORDERED: DIOVAN 80 MG PO SCH (10:00)
[2017-10-23] MEDS ORDERED: PLAVIX 75 MG Tablet PO SCH (10:00)
[2017-10-23] MEDS ORDERED: DULCOLAX 5 MG PO SCH (10:00)
[2017-10-23] MEDS ORDERED: CLARITIN 10 MG PO SCH (10:00)
[2017-10-23] MEDS ORDERED: HYDROCHLOROTHIAZIDE PO SCH (10:00)
[2017-10-23] MEDS ORDERED: LOPID 600 MG PO SCH (10:00)
--- NOTE | 2017-10-23 10:39 | XRAY ---
Indication: Short of breath. Comparison: 2 days ago. Portable chest again limited due to suboptimal technique/patient body habitus. Lungs remain slightly underinflated and clear. Heart is now borderline enlarged with mild central vascular prominence. Impression: Again limited chest. New borderline cardiomegaly and central vascular prominence concerning for mild/early cardiac decompensation versus fluid overload.
[2017-10-23 13:05] VITALS: BP 124/58; PULSE 86; O2SAT 93
[2017-10-23] MEDS ORDERED: ROCEPHIN 1 Gm-D5w 50 ml Bag** 1 G/50 ML IVPB IV SCH (14:15)
[2017-10-23 15:02] LABS: A-aADO2 63; ABG HEMOGLOBIN 15.4; ABG POTASSIUM 5.4 (3.5-5.1); ARTERIAL BLD GAS O2 SATURATION 96.7 % (95-100); ARTERIAL BLOOD GAS BASE EXCESS -1.7 (-2.0-2.0); ARTERIAL BLOOD GAS FIO2 40 %; ARTERIAL BLOOD GAS PO2 111 mmHg (75-100); CARBOXYHEMOGLOBIN 2.1 % THgb (0.0-6.9); HCO3- 30.3 (22-28); HGB O2 SAT 94.2 g/dF (94-100); Methhemoglobin 0.5 % (1.4-1.5); paO2 pAO1 0.64
[2017-10-23 15:03] LABS: ARTERIAL BLOOD GAS PCO2 89 mmHg (35-45); ARTERIAL BLOOD GAS pH 7.14 (7.35-7.45)
[2017-10-23 15:04] LABS: ABG SITE RIGHT RADIAL; ALLEN TEST OK? YES
--- NOTE | 2017-10-23 15:05 | PCM.DS ---
Discharge Summary Date of Admission: 10/22/17 15:57 Admitting Physician: HARRIETT GLEASON Consults: Consults on Case 10/23/17 08:43 Consult Nephrology ROUTINE Primary Care Provider: RABIA PATE Allergies Allergies Iodinated Contrast- Oral and IV Dye [IV Dye, Iodine Containing Contrast ] Allergy (Severe, Verified 10/22/17 16:18) Rash HIVES vancomycin Adverse Reaction (Severe, Verified 10/22/17 16:18) kidney failure liraglutide [From Victoza] Adverse Reaction (Verified 10/22/17 16:18) Nausea and Vomiting theophylline [From Navneet-Dur] Adverse Reaction (Verified 10/22/17 16:18) Vomiting Hospital Summary - Hospital Course Hospital Course: Pt is 41 yo obese hypertensive diabetic with restrictive lung dz and chronic renal insufficiency, pt of Rabia Humberto [facility], who was admitted yesterday for clinical pneumonia. Had a cough and feeling poorly for 2 weeks. She is extremely anxious and required ativan and xanax at admission and overnight simply to avoid having to leave AMA. She was given rocephin and zithromax, 1g and 500mg IV respectively, yesterday and today. She was given clindamycin IV overnight for question of Staphylococcal bacteremia; however per lab this is likely contamination and the clindamycin was discontinued. Cr is elevated to 2.2 (baseline 1.8-1.9). Pt was somnolent but responsive on interview this morning; SO said this was due to the xanax at 5 a.m. However she continued to be even more somnolent throughout the day. Her BS was 171, O2 sat 94% on 4L NC. We cannot do a CT head due to patient's size. Pt has reportedly asked for mental health screening today. She will be transferred to [facility] today for higher level of care. - Vitals & Intake/Output Vital Signs: Vital Signs Temperature 98.3 F 10/23/17 12:00 Pulse Rate 86 10/23/17 12:00 Respiratory Rate 22 10/23/17 12:00 Blood Pressure 124/58 10/23/17 12:00 O2 Sat by Pulse Oximetry 93 L 10/23/17 12:00 Oxygen-Last Documented O2 Percentage 4 Liters = 36% Intake & Output: Intake & Output 10/21/17 10/22/17 10/23/17 0908/18 11:59 11:59 11:59 11:59 Intake Total 2233 Output Total 1000 10 Balance 1233 -10 Weight 208 kg - Lab Result Diagrams: 10/23/17 05:36 Lab Results-Last 24 Hrs: Accuchecks Date 10/22/17 Date 10/22/17 Time 22:00 Time 16:30 Accucheck Value: 158 Accucheck Value: 115 Accucheck Value: 171 Accucheck Value: 81 Lab Results-Last 24 Hours 10/22/17 10/23/17 10/23/17 Range/Units Unknown 05:36 14:12 Sodium 140 (137-145) mmol/L Potassium 4.8 (3.5-5.1) mmol/L Chloride 100 (98-107) mmol/L Carbon Dioxide 30 (22-30) mmol/L Anion Gap 14.1 (5-15) MEQ/L BUN 69 H (7-17) mg/dL Creatinine 2.52 H (0.52-1.04) mg/dL Estimated GFR 22.5 ML/MIN Glucose 47 L* 162 H (74-106) mg/dL Hemoglobin A1c 6.58 H (4.5-6.0) % Calcium 9.0 (8.4-10.2) mg/dL Micro Results-Entire Visit: Accuchecks 10/22/1710/22/17 Time 22:00 Time 16:30 Accucheck Value: 158 Accucheck Value: 115 Accucheck Value: 171 Accucheck Value: 81 - Radiology Exams Ordered Rad Exams-Entire Visit: Radiology Procedures Category Date Time Status CHEST 1 VIEW (PORTABLE) Urgent Exams 10/23/17 09:56 Completed - Procedures and Test Procedures and Tests throughout Hospitalization: Therapy Orders & Screens 10/22/17 17:22 OT Screen per Nursing Assess ONCE Comment: Protocol Order Physician Instructions: Greater than 3 points order OT Admission Screening Reason For Exam: Triggered on Admission Diagnosis: Positive blood cultures, pneumonia Open Wound/Cellutlitis/Pressure Ulcers: Yes Acute Fx/ORIF/Change in wt bearing status: No Severe MUSCULOSKELETAL pain: No ADL Dysfunction: No Acute CVA w/Hemiparesis/Hemiplegia: No Decreased Functional Mobility/Strength: No Sprain/Strain: No Acute Post-op Mobility Dysfunction: No Total Points: 5 PT Screen per Nursing Assess ONCE Comment: Protocol Order Physician Instructions: Greater than 3 points order PT Admission Screenin Reason For Exam: Triggered on Admission Diagnosis: Positive blood cultures, pneumonia Open Wound/Cellutlitis/Pressure Ulcers: Yes Acute Fx/ORIF/Change in wt bearing status: No Severe MUSCULOSKELETAL pain: No ADL Dysfunction: No Acute CVA w/Hemiparesis/Hemiplegia: No Decreased Functional Mobility/Strength: No Sprain/Strain: No Acute Post-op Mobility Dysfunction: No Total Points: 5 RT Screen per Nursing Assess ONCE Comment: Protocol Order Physician Instructions: Greater than 3 points order RT Admission Screen Reason For Exam: Triggered on Admission Diagnosis: Positive blood cultures, pneumonia Diagnosis: Positive blood cultures, pneumonia Pneumonia: Yes Home O2: Yes Asthma: No CHF: Yes Home CPAP/BIPAP: No Home Nebs/MDI: Yes Total Points: 16 Smoking Cessation Education ONCE Comment: Diagnosis: Positive blood cultures, pneumonia Smoking Status: Current every day smoker How long have you smoked: 20 Have you smoked in the past 12 months: Yes Approximately how many cigarettes per day: less than a pack Do you dip or chew tobacco: No 10/22/17 23:55 Oxygen NASAL CANNULA 4 lpm Comment: Diagnosis: Positive blood cultures, pneumonia 10/22/17 23:56 Peak Expiratory Flow Rate ONCE Comment: Reason For Exam: Diagnosis: Positive blood cultures, pneumonia Respiratory Therapy Assessment DAILY Comment: Diagnosis: Positive blood cultures, pneumonia Discharge Exam General Appearance: obese (morbidly.), other (somnolent. (exam done this morning )) Neurologic Exam: cooperative Skin Exam: normal color, warm, dry, No rash Ears, Nose, Throat Exam: moist mucous membranes Respiratory Exam: lungs clear, diminished breath sounds, No crackles/rales, No rhonchi, No wheezing Cardiovascular Exam: regular rate/rhythm, normal heart sounds, No murmur Extremity Exam: other (LLE remote BKA. RLE trace edema pretibial) Final Diagnosis/Problem List - Final Discharge Diagnosis/Problem (1) Encephalopathy acute Current Visit: Yes Status: Acute Assessment & Plan: Will do ABG; bipap if necessary. Will transfer to [facility], Dr. Pritchard, thank you. (2) Pneumonia Current Visit: No Status: Acute Onset Date: ~10/21/17 Assessment & Plan: on day #2 rocehpin 1g and zithromax 500mg IV. (3) Dehydration Current Visit: Yes Status: Acute Assessment & Plan: On 80 mL LR. (4) CHF (congestive heart failure) Current Visit: No Status: Chronic Onset Date: ~10/21/17 Assessment & Plan: Pt on 40mg lasix BID at home; holding currently. (5) Renal failure (ARF), acute on chronic Current Visit: No Status: Acute Onset Date: ~10/21/17 Assessment & Plan: Wanted to consult Dr. 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 He has not been able to consult on the pt yet. (6) Diabetes mellitus Current Visit: No Status: Chronic - Discharge Disposition: DC TO [facility] Condition: Serious Prescriptions: No Action Clopidogrel Bisulfate 75 mg [PLAVIX 75 MG Tablet] 75 mg PO DAILY Linagliptin [Tradjenta] 5 mg PO DAILY Loratadine 10 mg [Claritin 10 mg] 10 mg PO DAILY Escitalopram Oxalate 10 mg [Lexapro 10 MG] 10 mg PO DAILY Valsartan/Hydrochlorothiazide [Diovan Hct 160-25 mg Tablet] 1 each PO DAILY Gemfibrozil 600 mg [Lopid 600 mg] 600 mg PO DAILY Pregabalin [Lyrica 100Mg] 200 mg PO HS Insulin Regular, Human [Humulin R U-500] 1 units SQ UD Ergocalciferol (Vitamin D2) [Vitamin D2] 1 cap PO UD Bisacodyl 5 mg [Dulcolax 5 mg] 10 mg PO DAILY Esomeprazole Magnesium [Nexium] 40 mg PO DAILY Furosemide [Lasix] 40 mg PO BID Metoprolol Tartrate [Lopressor] 100 mg PO DAILY Albuterol 8 gm Mdi Hfa [Ventolin Hfa MDI] 2 puff IH Q4HPRN PRN PRN Reason: Shortness Of Breath/Wheezing Albuterol 2.5 mg/3 ml Neb [Proventil 2.5 mg/3 ml Neb] 2.5 mg IH Q4HPRN PRN PRN Reason: Shortness Of Breath/Wheezing Follow up with: AMANDA SNEED [CONSULTING PHYSICIAN] - 1 Week RABIA PATE [Primary Care Provider] - 1 Week
[2017-10-26] MEDS ORDERED: VITAMIN D2 PO SCH (10:00)
== END 2017-10-23 16:05 | disposition home or self-care (01) ==
LOC: MED SURG 15:57
PROVIDERS: ADMIT Family Medicine; ATTEND Family Medicine
DX: G93.40 Encephalopathy, unspecified (principal); J18.1 Lobar pneumonia, unspecified organism; E86.0 Dehydration; I50.9 Heart failure, unspecified; N17.9 Acute kidney failure, unspecified; E11.9 Type 2 diabetes mellitus without complications; Z79.899 Other long term (current) drug therapy; I12.9 Hypertensive chronic kidney disease with stage 1 through stage 4 chronic kidney disease, or unspecified chronic kidney disease; N18.9 Chronic kidney disease, unspecified; I25.2 Old myocardial infarction; M19.90 Unspecified osteoarthritis, unspecified site; F41.9 Anxiety disorder, unspecified; F31.9 Bipolar disorder, unspecified
CPT/HCPCS: 36415; 36600; 71045; 80048; 80053; 82375; 82803; 82947; 82962; 83036; 85025; 94002; 94640; 94760; 96365; 96374; G0378; J7609; J0456; J0696; J1650; J2060; J2405; A9270-GY; G0463

== ENCOUNTER 2017-12-10 02:24 | Emergency (ER) | payer OTHER ==
--- NOTE | 2017-12-10 03:10 | ERPHSYRPT ---
- History of Present Illness Time Seen by Provider: 12/10/17 03:06 Source: patient Exam Limitations: no limitations Patient Subjective Stated Complaint: Pt has large abcess on R labia, nausea, "over the pain", fever Triage Nursing Assessment: Large abcess, hot to touch, reddened, no drainage, small scab area noted Physician History: This is a 41-year-old white female with history of high blood pressure, morbid obesity, myocardial infarction, COPD, bronchitis, adrenal insufficiency, diabetes type 2, arthritis, gallbladder disease, anxiety, bipolar depression, panic disorder, low back pain, acute kidney failure She arrives with complaint of an abscess in her right labia symptoms for a week she states she's had a fever at home some nausea Past medical history includes high blood pressure, morbid obesity, myocardial infarction, COPD, bronchitis, adrenal insufficiency, diabetes type 2, arthritis , gallbladder disease, anxiety, bipolar depression, panic disorder, low back pain, acute kidney failure Past surgical history includes cardiac catheterization, cardiac stent, left below the knee amputation, ORIF right great toe, removal of a Bible cysts, cataracts, oophorectomy Timing/Duration: week(s) (one week) Severity: moderate Modifying Factors: Improves With: nothing Associated Symptoms: nausea, No vomiting, No abdominal pain, No shortness of breath, No heartburn, No diaphoresis, No cough, No chills, No chest pain, No fever, No headaches, No loss of appetite, No malaise, No rash (unneeded Accu- Chek on he), No syncope, No seizure, No weakness (that she will feel maricel) Allergies/Adverse Reactions: Iodinated Contrast- Oral and IV Dye [IV Dye, Iodine Containing Contrast ] Allergy (Severe, Verified 10/22/17 16:18) Rash HIVES vancomycin Adverse Reaction (Severe, Verified 10/22/17 16:18) kidney failure liraglutide [From Victoza] Adverse Reaction (Verified 10/22/17 16:18) Nausea and Vomiting theophylline [From Navneet-Dur] Adverse Reaction (Verified 10/22/17 16:18) Vomiting Home Medications: Clopidogrel Bisulfate 75 mg [PLAVIX 75 MG Tablet] 75 mg PO DAILY 01/15/14 [History] Linagliptin [Tradjenta] 5 mg PO DAILY 02/04/14 [History] Loratadine 10 mg [Claritin 10 mg] 10 mg PO DAILY 12/11/16 [History] Gemfibrozil 600 mg [Lopid 600 mg] 600 mg PO DAILY 12/12/16 [History] Ergocalciferol (Vitamin D2) [Vitamin D2] 1 cap PO UD 10/21/17 [History] Insulin Regular, Human [Humulin R U-500] 1 units SQ UD 10/21/17 [History] Pregabalin [Lyrica 100Mg] 200 mg PO HS 10/21/17 [History] Albuterol 8 gm Mdi Hfa [Ventolin Hfa MDI] 2 puff IH Q4HPRN PRN 10/22/17 [ History] Esomeprazole Magnesium [Nexium] 40 mg PO DAILY 10/22/17 [History] Metoprolol Tartrate [Lopressor] 100 mg PO DAILY 10/22/17 [History] Allopurinol 100 mg [Zyloprim 100 mg] 100 mg PO DAILY 12/10/17 [History] Bumetanide 1 mg [Bumex 1 mg] 1 mg PO 12/10/17 [History] Docusate Sodium 100 mg [Colace 100 MG] 100 mg PO DAILY 12/10/17 [History] HydrALAzine HCL 25 MG TAB [Apresoline 25 MG TABLET] 25 mg PO 12/10/17 [ History] Sulfamethoxazole/Trimethoprim [Sulfamethoxazole-Tmp Ds Tablet] 1 each PO BID [History] Hx Tetanus, Diphtheria Vaccination/Date Given: Yes Hx Influenza Vaccination/Date Given: No Hx Pneumococcal Vaccination/Date Given: No Immunizations Up to Date: Yes - Review of Systems Constitutional: Fever, No Chills, No Fatigue, No Lethargy, No Malaise, No Night Sweats, No Weakness, No Weight Loss Eyes: No Symptoms Ears, Nose, & Throat: No Symptoms Respiratory: No Cough, No Dyspnea Cardiac: No Chest Pain, No Edema, No Syncope Abdominal/Gastrointestinal: Nausea, No Abdominal Pain, No Vomiting, No Diarrhea Genitourinary Symptoms: Other (abscess right labia) Musculoskeletal: No Back Pain, No Neck Pain Skin: Other (abscess right labia), No Rash Neurological: No Dizziness, No Focal Weakness, No Sensory Changes Psychological: No Symptoms Endocrine: No Symptoms All Other Systems: Reviewed and Negative - Past Medical History Pertinent Past Medical History: Yes Neurological History: No Pertinent History ENT History: Cataracts Cardiac History: Hypertension, Myocardial Infarction (NH) Respiratory History: Bronchitis, COPD Endocrine Medical History: Adrenal Insufficiency, Diabetes Type II Musculoskeletal History: Arthritis GI Medical History: Gallbladder Disease History: Other Psycho-Social History: Anxiety, Bipolar, Depression, Panic Disorder Female Reproductive Disorders: Other Other Medical History: [facility], Acute Kidney failure due to medication in the past. renal failure - Past Surgical History Past Surgical History: Yes Neuro Surgical History: No Pertinent History Cardiac: Cardiac Catheterization, Cardiac Stent Respiratory: No Pertinent History Gastrointestinal: No Pertinent History Genitourinary: No Pertinent History Musculoskeletal: Amputation, Orthopedic Surgery Female Surgical History: Other Other Surgical History: screw in toe- boxer break, removal of Bible cyst, amputation left below the knee, oopherectomy. - Social History Smoking Status: Former smoker How long have you smoked: 20 Exposure to second hand smoke: Yes Drug Use: none Patient Lives Alone: No - Female History Hx Now: No - Nursing Vital Signs Nursing Vital Signs: Initial Vital Signs Temperature 100.3 F 12/10/17 02:45 Pulse Rate 105 H 12/10/17 02:45 Respiratory Rate 20 12/10/17 02:45 Blood Pressure 148/69 12/10/17 02:45 O2 Sat by Pulse Oximetry 96 12/10/17 02:45 Pain Scale Pain Intensity 10 - Physical Exam General Appearance: no apparent distress, alert, obese Eye Exam: PERRL/EOMI, eyes nml inspection Ears, Nose, Throat Exam: normal ENT inspection, TMs normal, pharynx normal, moist mucous membranes Neck Exam: normal inspection, non-tender, supple, full range of motion Respiratory Exam: normal breath sounds, lungs clear, No respiratory distress Cardiovascular Exam: regular rate/rhythm, normal heart sounds, normal peripheral pulses Gastrointestinal/Abdomen Exam: soft, normal bowel sounds, No tenderness, No mass Pelvic Exam: other (right labia enlarged , 12x3 cm firm area right labia, nothing which can be incised in er ( deep)) Back Exam: normal inspection, normal range of motion, No CVA tenderness, No vertebral tenderness Extremity Exam: normal inspection, normal range of motion, pelvis stable Neurologic Exam: alert, oriented x 3, cooperative, 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 nml as tested, normal mood/affect, nml cerebellar function, nml station & gait, sensation nml, No motor deficits Skin Exam: normal color, warm, dry, No rash Lymphatic Exam: No adenopathy SpO2 Interpretation: normal (96%) SpO2: 96 Oxygen Delivery: Nasal Cannula Ordered Tests: Active Orders 24 hr Category Date Time Status Accucheck STAT Care 12/10/17 03:18 Active IV Insertion STAT Care 12/10/17 03:13 Active BLOOD CULTURE Stat Lab 12/10/17 03:33 Received CBC W DIFF Stat Lab 12/10/17 03:12 Completed CMP Stat Lab 12/10/17 03:12 Completed HCG QUALITATIVE,SERUM Stat Lab 12/10/17 03:12 Completed Medication Summary Generic Name Dose Route Start Last Admin Trade Name Freq PRN Reason Stop Dose Admin Clindamycin HCl/Dextrose 600 mg in 50 mls @ 100 mls/hr 12/10/17 03:49 03:59 Clindamycin-D5w 600 Mg/50 Ml IV 12/10/17 04:18 100 mls/hr STAT STA 100 mls/hr Administration Sodium Chloride 500 mls @ 500 mls/hr 12/10/17 03:49 12/10/17 03:59 Sodium Chloride 0.9% 500 Ml IV 12/10/17 04:48 500 mls/hr .Q1H ONE Administration Discontinued Medications Generic Name Dose Route Start Last Admin Trade Name Freq PRN Reason Stop Dose Admin Sodium Chloride Confirm 12/10/17 03:50 Sodium Chloride 0.9% 500 Ml Administered 12/10/17 03:51 Dose 500 mls @ ud IV .STK-MED ONE Clindamycin HCl/Dextrose Confirm 12/10/17 03:52 Clindamycin-D5w 600 Mg/50 Ml Administered 12/10/17 03:53 Dose 600 mg in 50 mls @ ud IV .STK-MED ONE Morphine Sulfate 4 mg 12/10/17 03:24 12/10/17 03:31 Morphine Sulfate 4 Mg Inj IV 12/10/17 03:25 4 mg STAT ONE Administration Morphine Sulfate Confirm 12/10/17 03:27 Morphine Sulfate 4 Mg Inj Administered 12/10/17 03:28 Dose 4 mg .ROUTE .STK-MED ONE Promethazine HCl 12.5 mg 12/10/17 03:24 12/10/17 03:31 Phenergan 25 Mg Inj IV 12/10/17 03:25 12.5 mg STAT ONE Administration Promethazine HCl Confirm 12/10/17 03:27 Phenergan 25 Mg Inj Administered 12/10/17 03:28 Dose 25 mg .ROUTE .STK-MED ONE Lab/Rad Data: Laboratory Result Diagrams 12/10/17 03:12 12/10/17 03:12 Laboratory Results 12/10/17 12/10/17 12/10/17 Range/Units 03:12 03:12 03:12 WBC 20.6 H (4.0-10.5) K/mm3 RBC 4.49 (4.1-5.4) M/mm3 Hgb 13.0 (12.0-16.0) gm/dl Hct 40.0 (35-47) % MCV 89.1 (78-100) fl MCH 29.0 (26-32) pg MCHC 32.5 (32-36) g/dl RDW 16.5 H (11.5-14.0) % Plt Count 213 (150-450) K/mm3 MPV 11.5 H (6-9.5) fl Gran % 86.2 H (36.0-66.0) % Eos # (Auto) 0.12 (0-0.5) Absolute Lymphs (auto) 1.41 (1.0-4.6) Absolute Monos (auto) 1.30 (0.0-1.3) Lymphocytes % 6.8 L (24.0-44.0) % Monocytes % 6.3 (0.0-12.0) % Eosinophils % 0.6 (0.00-5.0) % Basophils % 0.1 (0.0-0.4) % Absolute Granulocytes 17.77 H (1.4-6.9) Basophils # 0.03 (0-0.4) Sodium 133 L (137-145) mmol/L Potassium 4.3 (3.5-5.1) mmol/L Chloride 95 L (98-107) mmol/L Carbon Dioxide 29 (22-30) mmol/L Anion Gap 13.9 (5-15) MEQ/L BUN 38 H (7-17) mg/dL Creatinine 2.26 H (0.52-1.04) mg/dL Estimated GFR 25.5 ML/MIN Glucose 216 H (74-106) mg/dL Calcium 9.3 (8.4-10.2) mg/dL Total Bilirubin 0.80 (0.2-1.3) mg/dL AST 22 (14-36) U/L ALT 18 (0-35) U/L Alkaline Phosphatase 105 (38-126) U/L Serum Total Protein 7.5 (6.3-8.2) g/dL Albumin 3.9 (3.5-5.0) g/dL Serum , Qual NEGATIVE (Negative) - Progress Progress: improved Progress Note: 12/10/17 03:52 This is a 41-year-old morbidly obese white female with history of high blood pressure, atherosclerotic coronary artery disease, myocardial infarction, COPD, bronchitis, adrenal insufficiency, diabetes type 2, arthritis, gallbladder disease, anxiety, bipolar depression, panic disorder, low back pain, acute kidney failure. She arrives with complaints that she's had a fever off-and-on for the past week up to 103 she states that she's had an abscess in her right labia. She says that she has had some nauseousness. On physical examination patient has enlarged right labia and a palpable firm area which is approximately 12-13 cm x 3 cm underlying the right labia which appears to be somewhat deep there does not appear to be anything which I can incise at this time and also would be somewhat reluctant to secondary to the patient's diabetes. Patient has a white count of 20.6 hemoglobin 13 hematocrit 40 platelets are 213 patient's vitals here in the emergency room temperature 100.3 pulse 105 respiration 20 blood pressure 148/69 sats 96%. Patient is quite tender in the area right labial area. Patient's chemistry is remarkable for sodium 133 potassium 4.3 chloride 95 bicarbonate 29 BUN 38 creatinine 2.26 glucose is 216 patient's anion gap is within normal limits. I've discussed the patient's case with her ride considered contacted the physician on-call for her physician and discuss placing the patient on observation beginning IV antibiotics careful IV fluids (patient is on Bumex), and obtaining ultrasound of the right labia and surgery consult. However the patient states she really does not want to be admitted she states she is planning to see states josselin Paul later on this morning at approximately 11:00. I have ordered blood cultures on the patient I will order IV normal saline 500 mL bolus. Will go ahead and start patient on clindamycin will give her [address] her on clindamycin 300 mg orally 3 times a day for 10 days, Patient is already on Bactrim, Patient states she has been placing warm packs on the area, I have warned her that she should develop markedly erythematous skin she she needs to stop doing this and consider cool packs to the area, She is to follow-up with Rabia Paul as scheduled, She can return at any time and definitely needs to return for acute distress or for severe symptoms, 12/10/17 03:[address] patient [place] for pain. - Departure Time of Disposition: 03:57 Departure Disposition: Home Clinical Impression: Abscess of right genital labia, History of diabetes mellitus, Morbid obesity Condition: Fair Critical Care Time: No Referrals: RABIA PAUL [Primary Care Provider] - Additional Instructions: Return home. Clindamycin 300 mg orally 3 times a day for 10 days. Continue Bactrim DS one orally twice a day for 10 days. [place] as prescribed. May continue warm packs right labia however if you notice any erythema to the skin . discontinue this and begin cool packs to the area. It is important that you keep your appointment with Rabia Paul later today. You may return at any time you need to especially return for acute distress or for severe symptoms. Tylenol every 4 hours as needed for temperature greater than 100.5( rember there is 325 mg of tylenol in every norco tablet do not exceed more than 4 grams of tylenol in 24 hours. Prescriptions: Clindamycin HCl 300 mg PO TID #30 capsule Hydrocodone/Acetaminophen [[place] 5-325 Tablet] 1 tab PO Q4-6HPRN PRN #12 tablet MDD 6 tablets PRN Reason: Pain
[2017-12-10 03:14] LABS: BASOPHIL % 0.1 % (0.0-0.4); Basophil (Absolute #) 0.03 (0-0.4); Eosinophil % 0.6 % (0.00-5.0); Eosinophil (Absolute #) 0.12 (0-0.5); Granulocyte Absolute (ANC) 17.77 (1.4-6.9); Granulocytes % 86.2 % (36.0-66.0); Lymphocyte (Absolute #) 1.41 (1.0-4.6); Lymphocytes % 6.8 % (24.0-44.0); Mean Cell Volume 89.1 fl (78-100); Mean Corpuscular Hgb Concent. 32.5 g/dl (32-36); Mean Platelet Volume 11.5 fl (6-9.5); Monocytes % 6.3 % (0.0-12.0); Platelet Count 213 K/mm3 (150-450); Red Blood Count 4.49 M/mm3 (4.1-5.4); Red Cell Distribution Width 16.5 % (11.5-14.0); White Blood Count 20.6 K/mm3 (4.0-10.5)
[2017-12-10 03:24] VITALS: BP 109/66
[2017-12-10] MEDS ORDERED: Phenergan 25 MG INJ IV ONE (03:24)
[2017-12-10] MEDS ORDERED: MORPHINE SULFATE 4 MG INJ IV ONE (03:24)
[2017-12-10] MEDS ORDERED: MORPHINE SULFATE 4 MG INJ ONE (03:27)
[2017-12-10] MEDS ORDERED: Phenergan 25 MG INJ ONE (03:27)
[2017-12-10 03:29] LABS: ALBUMIN 3.9 g/dL (3.5-5.0); ANION GAP 13.9 MEQ/L (5-15); BILIRUBIN,TOTAL 0.8 mg/dL (0.2-1.3); Calcium 9.3 mg/dL (8.4-10.2); Creatinine 1 2.26 mg/dL (0.52-1.04); Potassium 4.3 mmol/L (3.5-5.1); Total Protein 7.5 g/dL (6.3-8.2)
[2017-12-10] MEDS ORDERED: CLINDAMYCIN-D5W 600 MG/50 ML*** 600 MG/50 ML BAG IV STA (03:49)
[2017-12-10] MEDS ORDERED: Sodium Chloride 0.9% 500 ML 500 ML IV ONE ×2 (03:49→03:50)
[2017-12-10] MEDS ORDERED: CLINDAMYCIN-D5W 600 MG/50 ML*** 600 MG/50 ML BAG IV ONE (03:52)
[2017-12-10 04:51] VITALS: PULSE 104; O2SAT 97
== END 2017-12-10 05:01 | disposition home or self-care (01) ==
LOC: ED 02:24
DX: N76.4 Abscess of vulva (principal); R11.0 Nausea; E66.01 Morbid (severe) obesity due to excess calories; E11.9 Type 2 diabetes mellitus without complications; I25.2 Old myocardial infarction; Z89.512 Acquired absence of left leg below knee; Z79.01 Long term (current) use of anticoagulants; Z79.899 Other long term (current) drug therapy; Z79.4 Long term (current) use of insulin
CPT/HCPCS: 36000; 36415; 80053; 81025; 82962; 85025; 87040; 96360; 96365; 96374; 96375; 99284; J2270; J2550